=== PATIENT | female | born 1990 | race Caucasian/White ===

== ENCOUNTER 2016-12-26 20:23 | Emergency (ER) | payer BC, OTHER ==
[~2016-12-26] VITALS: Ht 175.3 cm; Wt 76.5 kg
[~2016-12-26 20:23] MED LIST: ACET-749 PO; LEVO50TA PO; MTR600X PO; PRENTAB26 PO
[2016-12-26 21:12] VITALS: TEMP 36.8; Ht 175.3 cm; Wt 76.5 kg
[2016-12-26] MEDS ORDERED: LEVO50TA6 PO (21:38)
[2016-12-26] MEDS ORDERED: BCPILLS PO (21:38)
[2016-12-26] MEDS ORDERED: ZLF/50 PO (21:38)
[2016-12-26] MEDS ORDERED: AMOXICILLIN 250 MG CAP PO STA (21:46)
[2016-12-26] MEDS ORDERED: TRAMADOL HCL 50 MG HOME PACK PO ONE (22:00)
[2016-12-26] MEDS ORDERED: AMOXICILLIN HOME PACK 250 MG/TAB PO ONE (22:00)
[2016-12-26] MEDS ORDERED: AMOX500C3 PO (22:11)
[2016-12-26] MEDS ORDERED: TRAM-10 PO (22:11)
--- NOTE | 2016-12-26 22:12 | EMERGENCY ROOM VISIT NOTE ---
ED Visit Note First contact with patient: 21:16 Chief Complaint: Dental Pain History of Present Illness: This patient is a 26-year-old female who presents to the Emergency Department this evening for evaluation of their dental pain. Patient believes the pain is arising from LEFT upper incisor tooth which they report developed a few days ago. They describe the pain as constant and they now report radiation to the ear. They have tried vpnf-rdr-zakfufh medication for the pain minimally symptoms. They report increased pain with eating and drinking. Patient rates her current discomfort as a 8/10. The patient does not have a dentist appointment set up at this time. Patient currently denies any associated fevers, chills, visual disturbances, neck pain/stiffness, or trismus. They report no drainage from the tooth. Patient is a current smoker. Medications: Reviewed and discussed with the patient. Allergies: No known allergies. PMH: No pertinent past medical history. SHx: Patient is a 26-year-old female who lives with family. ROS: All pertinent positive and negative review of systems are appropriately documented in the History of Present Illness. Physical Exam: VITAL SIGNS Vital signs and nursing notes were reviewed. GENERAL 26 -year-old female appearing her stated age who is in no acute distress. Communicates well with provider and answers questions appropriately. HEAD Normocephalic, Atraumatic. EYES PERRL with EOMI bilaterally. EARS No deformities of external structures noted on gross examination bilaterally. No pain elicited with palpation of the tragus bilaterally. External auditory canals without discharge or otorrhea. Tympanic membranes pearly briones without retraction or bulging. NOSE Midline and without cyanosis. No epistaxis or purulent drainage noted. Septum midline without deviation or septal hematoma noted. MOUTH/OROPHARYNX Without perioral cyanosis. Buccal mucosa pink and moist and without leukoplakia. Tongue midline with equal elevation of palate bilaterally. No tonsillar hypertrophy, erythema, or exudates noted. Good dentition noted. The LEFT upper incisor tooth is TTP. Surrounding gums erythematous and edematous without discharge. Exquisite tenderness to palpation of affected tooth. No trismus. No fluctuance to palpation or active drainage appreciated. NECK Neck with FROM. Supple to palpation. No lymphadenopathy noted. No nuchal rigidity. ED Course: Patient was seen and evaluated by myself. It was discussed with the patient at great length that the Emergency Department is not an appropriate place for continued treatment of dental pain issues. Patient acknowledges understanding. Patient was provided initial dose of Amoxicillin and Ultram while in the Emergency Department. Patient will be placed on a course of the same. Patient was educated on worrisome symptoms for return visit to the Emergency Department. Patient was discharged to home afebrile and in good condition. Impression: Odontalgia Discharge Instructions: You have been treated in the Emergency Department for Dental Pain. You have received pain medicine in the emergency department which impairs your ability to operate a vehicle. It is illegal for you to drive after receiving these medicines. You have been prescribed Ultram to be used for pain control. This is a narcotic medication. You cannot drive or consume alcohol while on this medicine. This medicine should only be used for pain that cannot be controlled with over-the- counter pain medicines. You were prescribed Amoxicillin to be taken as prescribed. This is an antibiotic. All antibiotics have the potential to cause diarrhea. Stop this medication and contact a medical provider if you were to develop any significant adverse side effects including: wheezing, shortness of breath, passing out, vomiting, or a diffuse rash. Always take antibiotics as directed and COMPLETE the ENTIRE course regardless of the improvement of your symptoms. For pain control, you can use the following shax-ixy-bsaqvep medicines (if >12 yo): - Regular strength (325mg/tab) Tylenol (acetaminophen) 2 tabs every 4-6 hours as needed. Do not exceed 12 tablets in a 24 hour period. Avoid taking more than 4 grams (4000 mg) of Tylenol per day. This includes any other sources of acetaminophen you may take on a regular basis. - Regular strength (200 mg/tab) Advil (ibuprofen) 1-2 tabs every 4-6 hours as needed. Do not exceed a dose of 3200 mg per day. Refrain from smoking cigarettes or using chewing tobacco until you have been evaluated by your dentist. Keeping beverages lukewarm and consuming soft foods can decrease your pain. Warm compresses over the affected area may offer some relief. You MUST seek evaluation of your dental pain by a dentist following your visit to the Emergency Department. The Emergency Department is not capable of treating dental issues long-term. You should call your dentist as soon as possible to make an appointment for evaluation of your dental pain. Return to the emergency department if you develop the following symptoms despite treatment course outlined above: fever, intractable pain, increased redness, swelling, or purulent discharge. Current/Historical Medications Scheduled Amoxicillin (Amoxil), 500 MG PO TID Control Pills ( Control Pills), 1 TAB PO DAILY Levothyroxine Sodium (Levothyroxine Sodium), 50 MCG PO DAILY Sertraline HCl (Sertraline HCl), 50 MG PO DAILY Scheduled PRN Tramadol (Ultram), 1-2 TAB PO Q4H PRN for Pain Allergies Coded Allergies: No Known Allergies (Unverified , 06/27/16) Vital Signs Date Time Temp Pulse Resp B/P Pulse Ox O2 Delivery O2 Flow Rate FiO2 12/26/16 22:21 70 18 121/86 98 12/26/16 21:12 36.8 88 20 132/81 98 Room Air Medications Administered Medications (Trade) Dose Ordered Sig/Carmen Route Start Time Stop Time Status Last Admin Dose Admin Amoxicillin (Amoxil 250MG Home Pack) 1 homepack UD ONCE PO 12/26/16 22:00 12/26/16 22:01 DC 12/26/16 22:00 1 HOMEPACK Amoxicillin (Amoxil Cap) 500 mg NOW STAT PO 12/26/16 21:46 12/26/16 21:48 DC 12/26/16 21:55 500 MG Tramadol HCl (Ultram Home Pack) 1 homepack UD ONCE PO 12/26/16 22:00 12/26/16 22:01 DC 12/26/16 22:00 1 HOMEPACK Departure Information Impression Primary Impression: Pain, dental Additional Impression: Odontalgia Dispostion Home / Self-Care Condition GOOD Prescriptions Tramadol (Ultram) 50 Mg Tab 1-2 TAB PO Q4H Y for Pain, #16 TAB For Initial Treatment Prov: Ramirez Mendosa PA-C 12/26/16 Amoxicillin (AMOXIL) 500 Mg Cap 500 MG PO TID for 10 Days, #30 CAP Prov: Ramirez Mendosa PA-C 12/26/16 Referrals Mikey Sanchez M.D. (PCP) Patient Instructions My [facility] Additional Instructions You have been treated in the Emergency Department for Dental Pain. You have received pain medicine in the emergency department which impairs your ability to operate a vehicle. It is illegal for you to drive after receiving these medicines. You have been prescribed Ultram to be used for pain control. This is a narcotic medication. You cannot drive or consume alcohol while on this medicine. This medicine should only be used for pain that cannot be controlled with over-the- counter pain medicines. You were prescribed Amoxicillin to be taken as prescribed. This is an antibiotic. All antibiotics have the potential to cause diarrhea. Stop this medication and contact a medical provider if you were to develop any significant adverse side effects including: wheezing, shortness of breath, passing out, vomiting, or a diffuse rash. Always take antibiotics as directed and COMPLETE the ENTIRE course regardless of the improvement of your symptoms. For pain control, you can use the following gtxh-wnw-wtnbufd medicines (if >12 yo): - Regular strength (325mg/tab) Tylenol (acetaminophen) 2 tabs every 4-6 hours as needed. Do not exceed 12 tablets in a 24 hour period. Avoid taking more than 4 grams (4000 mg) of Tylenol per day. This includes any other sources of acetaminophen you may take on a regular basis. - Regular strength (200 mg/tab) Advil (ibuprofen) 1-2 tabs every 4-6 hours as needed. Do not exceed a dose of 3200 mg per day. Refrain from smoking cigarettes or using chewing tobacco until you have been evaluated by your dentist. Keeping beverages lukewarm and consuming soft foods can decrease your pain. Warm compresses over the affected area may offer some relief. You MUST seek evaluation of your dental pain by a dentist following your visit to the Emergency Department. The Emergency Department is not capable of treating dental issues long-term. You should call your dentist as soon as possible to make an appointment for evaluation of your dental pain. Return to the emergency department if you develop the following symptoms despite treatment course outlined above: fever, intractable pain, increased redness, swelling, or purulent discharge. Problem Qualifiers
[2016-12-26 22:21] VITALS: BP 121/86; PULSE 70; O2SAT 98
== END 2016-12-26 22:22 | disposition home or self-care (01) ==
LOC: C.EDB 20:24 → C.EDD 22:22
DX: K08.89 Other specified disorders of teeth and supporting structures (principal)

== ENCOUNTER 2017-04-24 20:59 | Emergency (ER) | payer BC, OTHER ==
[~2017-04-24] VITALS: Ht 175.3 cm; Wt 77.6 kg
[~2017-04-24 20:59] MED LIST changes: -ACET-749 PO; +BCPILLS PO; -LEVO50TA PO; +LEVO50TA6 PO; -MTR600X PO; -PRENTAB26 PO; +TRAM-10 PO; +ZLF/50 PO
[2017-04-24 21:13] VITALS: BP 134/86; PULSE 96; TEMP 37; O2SAT 97; Ht 175.3 cm; Wt 77.6 kg
[2017-04-24] MEDS ORDERED: HYDR-5688 PO (21:51)
[2017-04-24] MEDS ORDERED: PENI500T2 PO (21:51)
[2017-04-24] MEDS ORDERED: NORCO 5/325MG HOME PACK PO ONE (22:00)
[2017-04-24] MEDS ORDERED: PENICILLIN HOME PACK 500MG (4 DOSES)BTL PO ONE (22:00)
--- NOTE | 2017-04-25 20:19 | EMERGENCY ROOM VISIT NOTE ---
ED Visit Note First contact with patient: 21:34 CHIEF COMPLAINT: I think I have an abscessed tooth. HISTORY OF PRESENT ILLNESS: Ms. Lira is a 27-year-old white female who ambulates into the ED accompanied by her mother complaining of a possible abscess tooth. She reports a approximately one month ago she broke tooth 12. She was seen by her dentist who reported that she had an abscess and would need to be on antibiotics and follow up with oral surgery. She finished her antibiotic but at the same time had a change in insurance and could not follow-up with the oral surgeon. Patient reports earlier today while chewing she broke another piece off the tooth and started experiencing pain. Approximately one hour before she arrived in the emergency department she was chewing again and broke another piece officer same tooth. Currently she is describing a deep achy and throbbing sensation over the left maxillary area in the area of tooth 12. She rates her discomfort 8/10. Her pain is radiating throughout the left side of the face including the maxillary sinus area. Her discomfort worsens with palpation of the tooth. She has not identified any alleviating factors related to the pain. She reports that she has been using hatv-jil-zyohybi medications had no relief of her discomfort. Associated with her pain she reports she's been having chills but has not been documented any bryson fevers. She also feels like the left side of her face is swollen. She denies headaches, dizziness, lightheadedness, hearing changes, difficulty speaking, difficulty swallowing, painful talking, drooling, cough, wheezing, shortness of breath, decreased appetite, nausea/vomiting. REVIEW OF SYSTEMS: As noted above in History of Present Illness. 8 body systems were reviewed with this patient and found to be negative unless noted above otherwise. PMH: Bronchitis, migraine headaches. CURRENT MEDICATION: Levothyroxine, control, sertraline. ALLERGIES TO MEDICATION: Patient denies. SOCIAL HISTORY: Patient is not employed; she feels safe in her home environment ; she admits to Tobacco use and denies alcohol use. PHYSICAL EXAM: Vital Signs: Date Time Temp Pulse Resp B/P (MAP) Pulse Ox O2 Delivery O2 Flow Rate FiO2 04/24/17 21:13 37.0 96 16 134/86 97 Room Air General: 27 year-old white female in mild distress due to pain, nontoxic appearing, afebrile and hemodynamically stable. Neurological: Awake, alert and oriented to person, place and time. Answering questions appropriately and following commands. Normal gait. Good hand eye coordination. No focal motor or sensory deficits. Skin: Warm, dry and pink. No soft tissue lesions, rashes, or trauma noted. HEENT: Atraumatic and normocephalic. I do not appreciate any facial erythema or swelling. Oral cavity is moist and pink. Airway is patent. Uvula is midline and no abscesses are seen. Speech is normal. No drooling. Patient has multiple decaying teeth. Tooth #12 has most of the posterior half of the tooth is missing. There is mild erythema in the local gingiva. I do not appreciate any palpable abscesses. No cervical or submandibular lymphadenopathy. ED COURSE: Patient is assessed as noted above. Patient is educated about his findings and instructed on her treatment plan; she verbalizes understanding and agreement with this plan. CLINIC IMPRESSION: Dental pain. Possible early abscess tooth. DISPOSITION: Patient discharged home in stable condition; prior to departure she was reassessed and subjectively reported she was feeling the same. PLAN: Comfort measures were discussed including the use of a mechanical soft diet, covering the affected tooth with dental wax and a sliding pain scale of ibuprofen, acetaminophen and [place]. She was given appropriate narcotic precautions and I did check her name and state database and no red flags are noted. Patient was encouraged to followup with personal dentist for definitive care and treatment. Patient was encouraged to return the ED for facial swelling or fevers.
== END 2017-04-24 22:17 | disposition home or self-care (01) ==
LOC: C.EDB 21:00 → C.EDD 22:17
DX: K08.89 Other specified disorders of teeth and supporting structures (principal); Z79.3 Long term (current) use of hormonal contraceptives; Z79.899 Other long term (current) drug therapy

== ENCOUNTER 2017-08-07 16:33 | Emergency (ER) | payer BC, OTHER ==
[~2017-08-07] VITALS: Ht 175.3 cm; Wt 77.0 kg
[~2017-08-07 16:33] MED LIST changes: +HYDR-5688 PO; -TRAM-10 PO
[2017-08-07 16:43] VITALS: TEMP 36.8; Ht 175.3 cm; Wt 77.0 kg
[2017-08-07] MEDS ORDERED: IBUP-1050 PO (17:26)
[2017-08-07 17:56] VITALS: BP 116/76; PULSE 82; O2SAT 99
--- NOTE | 2017-08-07 17:58 | DIAGNOSTIC IMAGING REPORT ---
R ELBOW MIN 3 VIEWS ROUTINE CLINICAL HISTORY: R radial nerve palsy COMPARISON: None. DISCUSSION: The fat pads are not displaced. No fractures or dislocations are visualized. No bony destructive lesions are evident. IMPRESSION: No bony abnormalities identified. Electronically signed by: Harsh Albert M.D. 08/07/2017 5:57 PM Dictated Date/Time: 08/07/2017 5:56 PM
--- NOTE | 2017-08-07 19:58 | EMERGENCY ROOM VISIT NOTE ---
History First contact with patient: 16:49 Chief Complaint: ARM PAIN Stated Complaint: NUMBNESS IN THE HAND AND ARM, CAN'T OPEN HAND History of Present Illness The patient is a 27 year old female who presents to the Emergency Room with complaints of inability to open her right hand since awakening this morning around 8 AM. The patient denies any known injury to the arm, hand or fingers. The patient reports that she has a history of remote and bilateral hand numbness for the past 7 years. She was told by her chiropractor that it is arthritis. The patient denies any other significant medical problems. She does smoke a pack of cigarettes over a 3 day period of time, and has done so for the past 5 years. She denies any history of thyroid disease, anemia or known vitamin B/D deficiency. She denies any pain, and in fact reports numbness of the hand and lateral forearm. The patient is [id number]. Review of Systems 10 system review was performed and was negative except for pertinent positives and negatives as indicated in history of present illness Past Medical/Surgical History Medical Problems: (1) Active labor at term (2) Family History Unremarkable Social History Smoking Status: Current Some Day Smoker Alcohol Use: none Marital Status: Housing Status: lives with significant other Occupation Status: employed Current/Historical Medications Scheduled Levothyroxine Sodium (Levothyroxine Sodium), 50 MCG PO DAILY Sertraline HCl (Sertraline HCl), 100 MG PO DAILY Scheduled PRN Ibuprofen (Advil), 200-600 MG PO Q4H PRN for Pain Physical Exam Vital Signs Date Time Temp Pulse Resp B/P (MAP) Pulse Ox O2 Delivery O2 Flow Rate FiO2 08/07/17 17:56 82 20 116/76 99 Room Air 08/07/17 16:43 36.8 101 20 126/85 99 Room Air Physical Exam CONSTITUTIONAL: Healthy and well nourished. Alert and oriented X 3 with positive affect. The patient does not appear in any acute distress. HEENT: Normocephalic, atraumatic. Pupils equal, round and reactive. NECK: Full active range of motion without discomfort. RESPIRATORY: Clear to auscultation bilaterally with no wheezing, crackles, rhonchi or stridor. CARDIOVASCULAR: Regular rate and rhythm with no murmurs, rubs or gallops. GASTROINTESTINAL: Bowel sounds present in all quadrants. MUSCULOSKELETAL: Examination of the right upper extremity does not show any obvious edema, erythema or pallor. Capillary refill is less than 2 seconds. Radial and ulnar pulses are intact. The patient has no worsening pain with range of motion of the right shoulder, elbow, wrist or fingers. No focal tenderness to palpation through the cubital tunnel or around the radial head. Negative anatomic snuffbox tenderness. The patient has no extensor effort of the index through fifth fingers. She does have a dross puller strength of 2 out of 5. No interosseous muscle atrophy. INTEGUMENTARY: No rash or other significant dermatologic conditions noted. NEUROLOGIC: Right hand and fingers are grossly sensory intact. Medical Decision & Procedures ER Provider Diagnostic Interpretation: My interpretation of right elbow x-rays does not show any acute fractures, dislocation or suspicious bony lesions. Radiologist report is as follows: R ELBOW MIN 3 VIEWS ROUTINE CLINICAL HISTORY: R radial nerve palsy COMPARISON: None. DISCUSSION: The fat pads are not displaced. No fractures or dislocations are visualized. No bony destructive lesions are evident. IMPRESSION: No bony abnormalities identified. ED Course Patient history and physical exam were performed. Nurse's notes were reviewed. Vital signs were reviewed and were normal. X-rays of the right elbow were normal. The patient was advised that her clinical exam is consistent with a radial palsy. She was encouraged to intermittently apply ice to the lateral elbow region. She was provided contact information for [facility], where she has been treated before in the past for other issues. The patient was happy with plan of care, voiced understanding of all discharge instructions , and denied any pain at the time of discharge. Medical Decision Medication Reconcilliation Current Medication List: was personally reviewed by me Blood Pressure Screening Patient's blood pressure: Normal blood pressure Impression Primary Impression: Acute radial nerve palsy of right upper extremity Departure Information Referrals Mikey Sanchez M.D. (PCP) Patient Instructions My [facility]
== END 2017-08-07 19:14 | disposition home or self-care (01) ==
LOC: C.EDB 16:35 → C.EDC 19:14
DX: G56.31 Lesion of radial nerve, right upper limb (principal); F17.200 Nicotine dependence, unspecified, uncomplicated; Z79.899 Other long term (current) drug therapy

== ENCOUNTER → 2017-08-09 | Outpatient (CLI) | payer BC, OTHER ==
[~2017-08-09] MED LIST changes: -BCPILLS PO; -HYDR-5688 PO; +IBUP-1050 PO
--- NOTE | 2017-08-09 18:15 | DIAGNOSTIC IMAGING REPORT ---
CERVICAL SPINE 3 VIEWS HISTORY: NECK PAIN COMPARISON: Cervical spine 02/27/2015. FINDINGS: Flexion, extension, AP, and odontoid views of the cervical spine were submitted for review. The cervical spine is visualized from C1 through the superior endplate of T1. There is no fracture. No subluxation. Disc spaces are preserved. Prevertebral soft tissues and the atlantodens interval are intact. Alignment remains intact throughout flexion and extension. 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 This results in a mild downward tilt to the left of the upper cervical spine. IMPRESSION: 1. No change compared to the prior study. 2. 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 3. The alignment remains intact throughout flexion and extension. Electronically signed by: Momo Martines M.D. 08/09/2017 6:13 PM Dictated Date/Time: 08/09/2017 6:11 PM
== END | disposition home or self-care (01) ==
LOC: C.RDSM 15:33
PROVIDERS: ATTEND Orthopaedic Surgery
DX: M54.2 Cervicalgia (principal); Z98.1 Arthrodesis status

== ENCOUNTER 2018-05-25 15:41 | Emergency (ER) | payer BC ==
[~2018-05-25] VITALS: Ht 175.3 cm; Wt 86.6 kg
[2018-05-25 15:53] VITALS: TEMP 36.7; Ht 175.3 cm; Wt 86.6 kg
--- NOTE | 2018-05-25 17:24 | EMERGENCY ROOM VISIT NOTE ---
History Report prepared by Gregory: Magan Baker Under the Supervision of: Dr. Harish Stevens M.D. First contact with patient: 17:01 Chief Complaint: ABDOMINAL PAIN Stated Complaint: POSSIBLE APPENDICITIS, SENT FROM -CARE Nursing Triage Summary: Patient with c/o pain to the right of umbilicus that shoots to back. Pain has been on going for one - two weeks. N/V/D. Seen at acute care and sent to ER. History of Present Illness The patient is a 28 year old female with a past medical history of hypertension who presents to the ED with a cc of RLQ pain that she describes as a constant stabbing beginning about a week and a half ago. Her LNMP was about two weeks ago and was normal. Positive for vomiting, diarrhea. smoking, hypothyroidism, and chills Negative for hematochezia, recent travel, or abx use. Source of History: patient Onset: A week and a half ago Position: abdomen (RLQ) Quality: stabbing Timing: constant Associated Symptoms: + chills, + vomiting, + diarrhea, No melena, No hematochezia Review of Systems See HPI for pertinent positives and negatives. A total of ten systems were reviewed and were otherwise negative. Past Medical & Surgical Medical Problems: (1) Active labor at term (2) HTN (hypertension) (3) Hypothyroidism (4) Family History Cancer Diabetes mellitus FHx: gallbladder disease Heart disease Kidney disease Lung disease Seizures Social History Smoking Status: Current Every Day Smoker Alcohol Use: none Marital Status: Housing Status: lives with significant other Occupation Status: employed Current/Historical Medications Scheduled Control Pills ( Control Pills), 1 TAB PO DAILY Cephalexin (Keflex), 1 CAP PO BID Levothyroxine Sodium (Levothyroxine Sodium), 50 MCG PO DAILY Scheduled PRN Ondansetron Hcl (Zofran), 4 MG PO Q8H PRN for Nausea Allergies Coded Allergies: No Known Allergies (Unverified , 05/25/18) Physical Exam Vital Signs Date Time Temp Pulse Resp B/P (MAP) Pulse Ox O2 Delivery O2 Flow Rate FiO2 05/25/18 20:20 75 18 124/83 100 05/25/18 19:14 62 18 131/81 100 Room Air 05/25/18 18:57 78 05/25/18 15:53 36.7 96 18 153/89 99 Room Air Physical Exam GENERAL: Awake, alert, well-appearing, NAD HENT: Normocephalic, atraumatic. EYES: Normal conjunctiva. Sclera non-icteric. PERRL. No anisocoria. NECK: Supple. No nuchal rigidity. FROM. RESPIRATORY: CTAB, no rhonchi, wheezing, crackles CARDIAC: RRR, no MRG ABDOMEN: Soft, NTND, BS+, RLQ pain, epigastric pain, periumbilical pain, positive obturator, positive psoas MSK: No chest wall TTP, no LE edema NEURO: GCS 15, CN 2-12 intact, moves all 4s on command SKIN: No rash or jaundice noted. Medical Decision & Procedures ER Provider Diagnostic Interpretation: Radiology results as stated below per my review and radiologist interpretation: CT SCAN OF THE ABDOMEN AND PELVIS WITH IV CONTRAST CLINICAL HISTORY: Periumbilical and right lower quadrant abdominal pain. COMPARISON STUDY: No priors. TECHNIQUE: Following the IV administration of 94 cc of Optiray 320, CT scan of the abdomen and pelvis is performed from the lung bases to the proximal femora. Images are reviewed in the axial, sagittal, and coronal planes. IV contrast was administered without complication. A dose lowering technique was utilized adhering to the principles of ALARA. CT DOSE: 293.67 mGy.cm FINDINGS: Lung bases: The heart is normal in size and without pericardial effusion. There are trace pleural effusions with dependent atelectasis. Liver: The contrast-enhanced liver is enlarged, measuring 19.6 cm in length. The liver is normal in contour and demonstrates heterogeneous attenuation. There is no intrahepatic biliary ductal dilatation. The hepatic veins and portal veins are patent. Gallbladder: Unremarkable. Spleen: The spleen is markedly enlarged, measuring 17.2 cm in length. Pancreas: Unremarkable. Adrenal glands: Unremarkable. Kidneys: The contrast enhanced kidneys are normal in size and without hydronephrosis. The kidneys enhance symmetrically. Abdominal vasculature: The abdominal aorta is normal in course and caliber. Bowel: The colon is largely decompressed. No bowel obstruction is seen. The appendix is well-visualized and normal. Peritoneum: There is no intraperitoneal free air or abdominal ascites. Lymphadenopathy: None. Pelvic viscera: The bladder, uterus, and adnexa are normal as visualized. A small ovarian follicles are observed. Skeletal structures: No lytic or blastic lesions are seen. Mild sclerotic change is noted in the sacroiliac joints. IMPRESSION: 1. The appendix is well-visualized and normal. 2. Hepatosplenomegaly. 3. There are trace pleural effusions. Electronically signed by: Titus Merino M.D. 05/25/2018 7:24 PM Dictated Date/Time: 05/25/2018 7:16 PM Laboratory Results 05/25/18 18:21 Red Blood Count 5.58, Mean Corpuscular Volume 82.1, Mean Corpuscular Hemoglobin 29.2, Mean Corpuscular Hemoglobin Concent 35.6, Mean Platelet Volume 11.6, Neutrophils (%) (Auto) 66.3, Lymphocytes (%) (Auto) 28.8, Monocytes (%) (Auto) 4.2, Eosinophils (%) (Auto) 0.3, Basophils (%) (Auto) 0.3, Neutrophils # (Auto) 4.87, Lymphocytes # (Auto) 2.12, Monocytes # (Auto) 0.31, Eosinophils # (Auto) 0.02, Basophils # (Auto) 0.02 05/25/18 18:21 Test 05/25/18 18:21 White Blood Count 7.35 K/uL (4.8-10.8) Red Blood Count 5.58 M/uL (4.2-5.4) Hemoglobin 16.3 g/dL (12.0-16.0) Hematocrit 45.8 % (37-47) Mean Corpuscular Volume 82.1 fL (80-100) Mean Corpuscular Hemoglobin 29.2 pg (25-34) Mean Corpuscular Hemoglobin Concent 35.6 g/dl (32-36) Platelet Count 161 K/uL (130-400) Mean Platelet Volume 11.6 fL (7.4-10.4) Neutrophils (%) (Auto) 66.3 % Lymphocytes (%) (Auto) 28.8 % Monocytes (%) (Auto) 4.2 % Eosinophils (%) (Auto) 0.3 % Basophils (%) (Auto) 0.3 % Neutrophils # (Auto) 4.87 K/uL (1.4-6.5) Lymphocytes # (Auto) 2.12 K/uL (1.2-3.4) Monocytes # (Auto) 0.31 K/uL (0.11-0.59) Eosinophils # (Auto) 0.02 K/uL (0-0.5) Basophils # (Auto) 0.02 K/uL (0-0.2) RDW Standard Deviation 38.0 fL (36.4-46.3) RDW Coefficient of Variation 12.7 % (11.5-14.5) Immature Granulocyte % (Auto) 0.1 % Immature Granulocyte # (Auto) 0.01 K/uL (0.00-0.02) Urine Color YELLOW Urine Appearance CLOUDY (CLEAR) Urine pH 7.5 (4.5-7.5) Urine Specific Rosanky 1.004 (1.000-1.030) Urine Protein NEG (NEG) Urine Glucose (UA) NEG (NEG) Urine Ketones NEG (NEG) Urine Occult Blood NEG (NEG) Urine Nitrite NEG (NEG) Urine Bilirubin NEG (NEG) Urine Urobilinogen NEG (NEG) Urine Leukocyte Esterase LARGE (NEG) Urine WBC (Auto) /hpf (0-5) Urine RBC (Auto) /hpf (0-4) Urine Hyaline Casts (Auto) /lpf (0-5) Urine Epithelial Cells (Auto) /lpf (0-5) Urine Bacteria (Auto) (NEG) Urine RBC 0-4 /hpf (0-4) Urine WBC >30 /hpf (0-5) Urine Epithelial Cells >30 /lpf (0-5) Urine Bacteria 1+ (NEG) Urine Test NEG (NEG) Anion Gap 8.0 mmol/L (3-11) Est Creatinine Clear Calc Drug Dose 137.1 ml/min Estimated GFR () 131.7 Estimated GFR (Non- 113.7 BUN/Creatinine Ratio 6.2 (10-20) Calcium Level 9.5 mg/dl (8.5-10.1) Total Bilirubin 0.5 mg/dl (0.2-1) Direct Bilirubin 0.1 mg/dl (0-0.2) Aspartate Amino Transf (AST/SGOT) 17 U/L (15-37) Alanine Aminotransferase (ALT/SGPT) 19 U/L (12-78) Alkaline Phosphatase 67 U/L (45-117) Total Protein 8.9 gm/dl (6.4-8.2) Albumin 4.5 gm/dl (3.4-5.0) Lipase 122 U/L (73-393) Laboratory results reviewed by me Medications Administered Medications (Trade) Dose Ordered Sig/Carmen Route Start Time Stop Time Status Last Admin Dose Admin Sodium Chloride 1,000 ml @ 999 mls/hr Q1H1M STAT IV 05/25/18 17:26 05/25/18 18:26 DC 05/25/18 18:34 999 MLS/HR Ondansetron HCl (Zofran Inj) 4 mg NOW STAT IV 05/25/18 17:26 05/25/18 17:27 DC 05/25/18 18:35 4 MG Ketorolac Tromethamine (Toradol Inj) 30 mg NOW STAT IV 05/25/18 17:26 05/25/18 17:27 DC 05/25/18 18:34 30 MG Ceftriaxone Sodium (Rocephin Inj) 1 gm NOW STAT IV 05/25/18 19:11 05/25/18 19:12 DC 05/25/18 19:17 1 GM ED Course 1720: The patient was evaluated in room A2. A complete history and physical exam was performed. 1931: I reevaluated the patient's condition 2008: I reevaluated the patient. Discussed results and discharge instructions: She verbalized understanding and agreement. The patient is ready for discharge. Medical Decision Nursing notes reviewed. Ancillary studies and prior records reviewed. Differential diagnosis: Etiologies such as appendicitis, diverticulitis, PUD, biliary pathology, UTI, pancreatitis, obstruction, mesenteric ischemia, aortic pathology, infections, inflammatory bowel disease, renal colic, as well as others were entertained. Patient was seen and evaluated the bedside. Patient has no past medical problems. The patient was complaining of persistent periumbilical and right lower quadrant discomfort. Patient denies any vaginal bleeding or discharge. Patient denies any trauma. The patient was seen at acute care and was referred here for rule out of appendicitis. The patient does have right lower quadrant discomfort with associated positive obturators and so as. Patient did have blood work, urinalysis, CT abdomen pelvis, was given medications for symptom control. His blood work is fairly unremarked. Patient did have a urinalysis with questionable infection. The patient was treated with Rocephin. The patient CT did show hepatosplenomegaly but no other acute changes. The patient does not have any history of thrombocytosis. The patient has normal LFTs. This may be more viral the mediated. I did warn the patient not to do anything with high intensity contact as there could be concern for possible splenic rupture or laceration. I did discuss that the patient could have mono or another viral mediated illness but this would likely just be supportive in nature. Given that her blood work is very reassuring otherwise with blood cell count H&H, platelet count, and LFTs I believe outpatient therapy is appropriate at this time. Patient was told return if she any worsening symptoms. Patient tolerated p.o. without issue. Patient was counseled on smoking cessation and was advised to follow a clear liquid or soft diet. Patient was given strict follow-up, discharge, and return precautions. All questions were answered. Patient was deemed suitable for outpatient follow-up at this time. Patient agreed with the plan of care and was safely discharged home. Medication Reconcilliation Current Medication List: was personally reviewed by me Blood Pressure Screening Patient's blood pressure: Normal blood pressure Impression Primary Impression: UTI (urinary tract infection) Additional Impressions: Hepatosplenomegaly Encounter for smoking cessation counseling Scribe Attestation The scribe's documentation has been prepared under my direction and personally reviewed by me in its entirety. I confirm that the note above accurately reflects all work, treatment, procedures, and medical decision making performed by me. Departure Information Dispostion Home / Self-Care Prescriptions Ondansetron Hcl (ZOFRAN) 4 Mg Tab 4 MG PO Q8H Y for Nausea, #12 TAB Prov: Harish Stevens M.D. 05/25/18 Cephalexin (KEFLEX) 500 Mg Cap 1 CAP PO BID for 7 Days, #14 CAP Prov: Harish Stevens M.D. 05/25/18 Referrals Mikey Sanchez M.D. (PCP) Forms HOME CARE DOCUMENTATION FORM, IMPORTANT VISIT INFORMATION Patient Instructions ED UTI Cystitis Female, My [facility] Additional Instructions Please return to the emergency department if you have worsening or recurrent symptoms not amenable to at-home treatment. Please call for a follow-up appointment with her primary care physician. Please take your medications as prescribed. If you have other concerns and/or complaints please feel free to also call your primary care physician's office or return the ED for further evaluation, management, and treatment. You may take 600 mg Ibuprofen every 6 hours as needed for pain/fever with food unless told by your physician not to take NSAIDs. You may take tylenol 650 mg every 6 hours as needed for pain/fever unless told by your physician to not take it or have liver problems. You may take motrin and tylenol separately or at the same time. Take your medications as prescribed. If taking an antibiotic consider taking a probiotic and/or eating yogurt, but at the least, please take with food as it can cause upset stomach. If culture results are not available at discharge, if they are positive for concern of infection, you will be informed of the results as soon as they are available. As a reminder you did have a mildly enlarged spleen and liver. Please do not overexert yourself or play or perform any physical activities that incorporate any sort of hard physical contact. You have been examined and treated today on an emergency basis only. This is not a substitute for, or an effort to provide, complete comprehensive medical care. It is impossible to recognize and treat all injuries or illnesses in a single emergency department visit. It is therefore important that you follow up closely with [facility], your PCP, and/or your specialist(s). Call as soon as possible for an appointment. Thank you for your time and consideration. I look forward to speaking with you again soon. Please don't hesitate to call us if you have any questions. Problem Qualifiers Primary Impression: UTI (urinary tract infection) Urinary tract infection type: acute cystitis Hematuria presence: with hematuria Qualified Codes: N30.01 - Acute cystitis with hematuria
[2018-05-25] MEDS ORDERED: SODIUM CHLORIDE 0.9% 1000ML 1,000 ML IV STA (17:26)
[2018-05-25] MEDS ORDERED: KETOROLAC TROMETHAMINE 30 MG/ML VIAL IV STA (17:26)
[2018-05-25] MEDS ORDERED: ONDANSETRON INJ 2 MG/ML 2 ML VIAL IV STA (17:26)
[2018-05-25] MEDS ORDERED: BCPILLS PO (17:38)
[2018-05-25 18:37] LABS: BASO % 0.3 %; BASO ABS # 0.02 K/uL (0-0.2); EOS % 0.3 %; EOS ABS # 0.02 K/uL (0-0.5); HEMATOCRIT 45.8 % (37-47); HEMOGLOBIN 16.3 g/dL (12.0-16.0); IG# 0.01 K/uL (0.00-0.02); LYMPH % 28.8 %; LYMPH ABS # 2.12 K/uL (1.2-3.4); MEAN CELL VOLUME 82.1 fL (80-100); MEAN CORPUSCULAR HEMOGLOBIN 29.2 pg (25-34); MEAN CORPUSCULAR HGB CONC 35.6 g/dl (32-36); MEAN PLATELET VOLUME 11.6 fL (7.4-10.4); MONO % 4.2 %; MONO ABS # 0.31 K/uL (0.11-0.59); NEUT % 66.3 %; NEUT ABS # 4.87 K/uL (1.4-6.5); PLATELET COUNT 161 K/uL (130-400); RED CELL DISTRIBUTION WIDTH CV 12.7 % (11.5-14.5); WHITE BLOOD COUNT 7.35 K/uL (4.8-10.8)
[2018-05-25 18:56] LABS: CREATININE 0.73 mg/dl (0.60-1.20)
[2018-05-25 18:57] LABS: ALBUMIN 4.5 gm/dl (3.4-5.0); CALCIUM 9.5 mg/dl (8.5-10.1); POTASSIUM 3.7 mmol/L (3.5-5.1); TOTAL PROTEIN 8.9 gm/dl (6.4-8.2)
[2018-05-25] MEDS ORDERED: OPTIRAY 320 IV PRN (19:00)
[2018-05-25] MEDS ORDERED: CEFTRIAXONE SOD INJ 1 GM ADDVIAL IV STA (19:11)
--- NOTE | 2018-05-25 19:26 | DIAGNOSTIC IMAGING REPORT ---
CT SCAN OF THE ABDOMEN AND PELVIS WITH IV CONTRAST CLINICAL HISTORY: Periumbilical and right lower quadrant abdominal pain. COMPARISON STUDY: No priors. TECHNIQUE: Following the IV administration of 94 cc of Optiray 320, CT scan of the abdomen and pelvis is performed from the lung bases to the proximal femora. Images are reviewed in the axial, sagittal, and coronal planes. IV contrast was administered without complication. A dose lowering technique was utilized adhering to the principles of ALARA. CT DOSE: 293.67 mGy.cm FINDINGS: Lung bases: The heart is normal in size and without pericardial effusion. There are trace pleural effusions with dependent atelectasis. Liver: The contrast-enhanced liver is enlarged, measuring 19.6 cm in length. The liver is normal in contour and demonstrates heterogeneous attenuation. There is no intrahepatic biliary ductal dilatation. The hepatic veins and portal veins are patent. Gallbladder: Unremarkable. Spleen: The spleen is markedly enlarged, measuring 17.2 cm in length. Pancreas: Unremarkable. Adrenal glands: Unremarkable. Kidneys: The contrast enhanced kidneys are normal in size and without hydronephrosis. The kidneys enhance symmetrically. Abdominal vasculature: The abdominal aorta is normal in course and caliber. Bowel: The colon is largely decompressed. No bowel obstruction is seen. The appendix is well-visualized and normal. Peritoneum: There is no intraperitoneal free air or abdominal ascites. Lymphadenopathy: None. Pelvic viscera: The bladder, uterus, and adnexa are normal as visualized. A small ovarian follicles are observed. Skeletal structures: No lytic or blastic lesions are seen. Mild sclerotic change is noted in the sacroiliac joints. IMPRESSION: 1. The appendix is well-visualized and normal. 2. Hepatosplenomegaly. 3. There are trace pleural effusions. Electronically signed by: Titus Merino M.D. 05/25/2018 7:24 PM Dictated Date/Time: 05/25/2018 7:16 PM
[2018-05-25] MEDS ORDERED: ONDA4TAB46 PO (19:41)
[2018-05-25] MEDS ORDERED: CEPH-571 PO (19:41)
[2018-05-25 20:20] VITALS: BP 124/83; PULSE 75; O2SAT 100
== END 2018-05-25 20:14 | disposition home or self-care (01) ==
LOC: C.EDB 15:44 → C.EDA 20:14
DX: N60.01 Solitary cyst of right breast (principal); R16.2 Hepatomegaly with splenomegaly, not elsewhere classified; I10 Essential (primary) hypertension; E03.9 Hypothyroidism, unspecified; F17.200 Nicotine dependence, unspecified, uncomplicated

== ENCOUNTER 2021-02-18 15:22 | Inpatient (IN) ==
[2021-02-18] MEDS ORDERED: AMPICILLIN/SULBACTAM SOD 3,000 MG in 0.9 % SODIUM CHLORIDE 100 ML IV STA (15:45)
[2021-02-18] MEDS ORDERED: SODIUM CHLORIDE 0.9% 1000ML 1,000 ML IV ONE ×2 (15:45→17:12)
[2021-02-18] MEDS ORDERED: KETOROLAC TROMETHAMINE 15 MG/ML VIAL IV STA (15:45)
[2021-02-18 16:02] LABS: Basophils # (auto) 0.01 K/uL (0-0.2); Basophils % (auto) 0.1 %; Eosinophils # (auto) 0.06 K/uL (0-0.5); Eosinophils % (auto) 0.5 %; Hematocrit (blood only) 42.2 % (37-47); Hemoglobin 14.9 g/dL (12.0-16.0); Immature Granulocytes # (auto) 0.03 K/uL (0.00-0.02); Immature Granulocytes % (auto) 0.3 %; Lymphocytes # (auto) 1.54 K/uL (1.2-3.4); Lymphocytes % (auto) 13.8 %; Mean Corpuscular Hemoglobin 29.3 pg (25-34); Mean Corpuscular Hgb Conc 35.3 g/dL (32-36); Mean Corpuscular Volume 83.1 fL (80-100); Mean Platelet Volume 10.7 fL (7.4-10.4); Monocytes # (auto) 1.03 K/uL (0.11-0.59); Monocytes % (auto) 9.2 %; Neutrophils # (auto) 8.48 K/uL (1.4-6.5); Neutrophils % (auto) 76.1 %; Platelet Count 187 K/uL (130-400); RDW Coefficient of Variation 12.8 % (11.5-14.5); RDW Standard Deviation 38.8 fL (36.4-46.3); Red Blood Count 5.08 M/uL (4.2-5.4); White Blood Count 11.15 K/uL (4.8-10.8)
[2021-02-18 16:21] LABS: BUN Creatinine Ratio 11.8 (10-20); Calcium 9.6 mg/dl (8.5-10.1); Est GFR (African American) 148.7; Est GFR (Non-African American) 128.3; Potassium 3.8 mmol/L (3.5-5.1)
[2021-02-18 16:23] LABS: Pregnancy Test, Serum Negative (Negative)
[2021-02-18 16:24] LABS: Globulin 4.2 gm/dl (2.5-4.0); Total Protein 8.2 gm/dl (6.4-8.2)
--- NOTE | 2021-02-18 16:30 | Emergency Department Note ---
History of Present Illness General Chief complaint: Facial Injury/Pain Stated complaint: LEFT SIDE OF FACE IS SWOLLEN Time Seen by Provider: 02/18/21 15:32 Source: patient Mode of arrival: ambulatory Limitations: no limitations History of Present Illness Maximum Pain Intensity: 7 This patient is a 31-year-old female who presents to the emergency department for evaluation of left-sided facial swelling. Patient reports she has had a long history of dental issues and needs to have all of her teeth removed. She has been unable to do this because no one locally accepts her insurance and she would have to travel to [place], which is difficult because she has several kids at home. She states she has been having pain in the left side of the face for the past 2 to 3 weeks. Last night, she developed some swelling in this area which has worsened today. She states it is painful to eat. She has been taking ibuprofen without much relief. She states the pain is in the upper teeth. She has not recently been on antibiotics. She rates her discomfort a 7/10. She denies fevers or difficulty breathing. Home Medications Medication Instructions Recorded Confirmed Type citalopram [Celexa] 10 mg PO DAILY 02/18/21 02/18/21 History Allergies Allergy/AdvReac Type Severity Reaction Status Date / Time No Known Allergies Allergy Unverified 02/18/21 18:30 Past Med/Surg History Medical History HTN (hypertension) Hypothyroidism Social History Smoking Status: Current every day smoker Feels Safe at Home: Yes Review of Systems A total of 10 systems reviewed and were otherwise negative Physical Exam Vital Signs Vital Signs - 24 hr 02/18/21 15:29 02/18/21 17:22 02/18/21 17:31 Temperature 36.8 C Temperature Source Temporal Artery Scan Pulse Rate 142 H 112 H Pulse Rate [Apical] 88 Pulse Rate from SpO2 Sensor 112 H Respiratory Rate 18 18 Respiratory Effort / Characteristics Non-Labored Respiratory Depth Normal Blood Pressure 139/79 129/87 Blood Pressure [Left Arm] 129/87 Blood Pressure Mean 99 101 Blood Pressure Mean [Left Arm] 101 Pulse Oximetry 100 97 100 Oxygen Delivery Method Room Air Room Air Sepsis Recent Fever Within 48 Hours No Sepsis New/Unexplained Change in Mental Status No Sepsis Action Taken by Nursing No Action Required 02/18/21 17:33 02/18/21 17:40 02/18/21 17:50 Temperature Temperature Source Pulse Rate 114 H 108 H 109 H Pulse Rate [Apical] Pulse Rate from SpO2 Sensor 114 H 107 H Respiratory Rate 21 15 18 Respiratory Effort / Characteristics Respiratory Depth Blood Pressure Blood Pressure [Left Arm] Blood Pressure Mean Blood Pressure Mean [Left Arm] Pulse Oximetry 100 99 Oxygen Delivery Method Sepsis Recent Fever Within 48 Hours Sepsis New/Unexplained Change in Mental Status Sepsis Action Taken by Nursing 02/18/21 18:00 02/18/21 18:10 02/18/21 18:20 Temperature Temperature Source Pulse Rate 104 H 98 H 99 H Pulse Rate [Apical] Pulse Rate from SpO2 Sensor Respiratory Rate 17 18 14 Respiratory Effort / Characteristics Respiratory Depth Blood Pressure Blood Pressure [Left Arm] Blood Pressure Mean Blood Pressure Mean [Left Arm] Pulse Oximetry Oxygen Delivery Method Sepsis Recent Fever Within 48 Hours Sepsis New/Unexplained Change in Mental Status Sepsis Action Taken by Nursing 02/18/21 18:30 02/18/21 18:40 02/18/21 18:50 Temperature Temperature Source Pulse Rate 95 H 98 H 97 H Pulse Rate [Apical] Pulse Rate from SpO2 Sensor Respiratory Rate 17 13 20 Respiratory Effort / Characteristics Respiratory Depth Blood Pressure 125/70 Blood Pressure [Left Arm] Blood Pressure Mean 88 Blood Pressure Mean [Left Arm] Pulse Oximetry Oxygen Delivery Method Sepsis Recent Fever Within 48 Hours Sepsis New/Unexplained Change in Mental Status Sepsis Action Taken by Nursing 02/18/21 19:00 02/18/21 19:10 02/18/21 19:20 Temperature Temperature Source Pulse Rate 91 H 105 H 94 H Pulse Rate [Apical] Pulse Rate from SpO2 Sensor Respiratory Rate 13 19 17 Respiratory Effort / Characteristics Respiratory Depth Blood Pressure Blood Pressure [Left Arm] Blood Pressure Mean Blood Pressure Mean [Left Arm] Pulse Oximetry Oxygen Delivery Method Sepsis Recent Fever Within 48 Hours Sepsis New/Unexplained Change in Mental Status Sepsis Action Taken by Nursing VITALS: Vitals are noted on the nurse's note and reviewed by myself. GENERAL: This is a 31-year-old female, uncomfortable appearing, anxious, well-developed well-nourished. FACE: There is significant facial swelling to the left maxillary and mandibular regions, extending just inferior to the left eye. EARS: External auditory canals clear, tympanic membranes pearly briones without erythema or effusion bilaterally. EYES: Pupils equal round and reactive to light and accommodation. NOSE: Patent, turbinates without inflammation or discharge. MOUTH: Multiple dental caries noted, poor dentition. Left upper gums appear edematous. NECK: Supple without nuchal rigidity. Bilateral cervical lymphadenopathy noted. HEART: Regular rate and rhythm without murmurs gallops or rubs. LUNGS: Clear to auscultation bilaterally without wheezes, rales or rhonchi. No dullness to percussion. No retractions or accessory muscle use. NEURO: Patient was alert and oriented to person place and time. Course Consultations Consultation #1: Dr. Solorzano - maxillofacial surgery Administered Medications Ketorolac Tromethamine (Ketorolac Tromethamine 15 Mg/Ml Vial) 15 mg IV Q6H PRN PRN Reason: Pain Stop: 02/23/21 19:26 Last Admin: 02/18/21 20:46 Dose: 15 mg Documented by: [id number] Discontinued Medications Ampicillin Sodium/Sulbactam Sodium 3,000 mg/ Sodium Chloride 108 mls @ 200 mls/hr IV NOW STA; Protocol Stop: 02/18/21 16:17 Last Infusion: 02/18/21 17:06 Dose: 0 mls/hr Documented by: [id number] Admin: 02/18/21 15:54 Dose: 200 mls/hr Documented by: [id number] Sodium Chloride (Nss 1000ml) 1,000 mls @ 999 mls/hr IV .Q1H1M ONE Stop: 02/18/21 16:45 Last Infusion: 02/18/21 17:06 Dose: 0 mls/hr Documented by: [id number] Admin: 02/18/21 15:54 Dose: 999 mls/hr Documented by: [id number] Sodium Chloride (Nss 1000ml) 1,000 mls @ 999 mls/hr IV .Q1H1M ONE Stop: 02/18/21 18:12 Last Infusion: 02/18/21 20:11 Dose: 0 mls/hr Documented by: [id number] Admin: 02/18/21 17:48 Dose: 999 mls/hr Documented by: [id number] Ioversol (Optiray 300 100ml) 89 ml IV ONCE ONE Stop: 02/18/21 16:32 Last Admin: 02/18/21 16:32 Dose: 89 ml Documented by: [id number] Ketorolac Tromethamine (Ketorolac Tromethamine 15 Mg/Ml Vial) 15 mg IV NOW STA Stop: 02/18/21 15:46 Last Admin: 02/18/21 15:54 Dose: 15 mg Documented by: [id number] Medical Decision Making Differential Diagnosis Differential diagnosis includes dental caries, periapical abscess, facial cellulitis, Dony's angina, pharyngitis, referred pain, among others. Home Medications Current Medication List: was personally reviewed by me Laboratory Data Attestation: I reviewed the patient's lab results. Result diagrams: 02/18/21 15:55 02/18/21 15:55 Lab Results 02/18/21 02/18/21 02/18/21 Range/Units 15:55 15:55 15:55 WBC 11.15 H (4.8-10.8) K/uL RBC 5.08 (4.2-5.4) M/uL Hgb 14.9 (12.0-16.0) g/dL Hct 42.2 (37-47) % MCV 83.1 (80-100) fL MCH 29.3 (25-34) pg MCHC 35.3 (32-36) g/dL RDW Std Deviation 38.8 (36.4-46.3) fL RDW Coeff of Marek 12.8 (11.5-14.5) % Plt Count 187 (130-400) K/uL MPV 10.7 H (7.4-10.4) fL Immature Gran % (Auto) 0.3 % Neut % (Auto) 76.1 % Lymph % (Auto) 13.8 % [place] % (Auto) 9.2 % Eos % (Auto) 0.5 % Baso % (Auto) 0.1 % Neut # (Auto) 8.48 H (1.4-6.5) K/uL Lymph # (Auto) 1.54 (1.2-3.4) K/uL [place] # (Auto) 1.03 H (0.11-0.59) K/uL Eos # (Auto) 0.06 (0-0.5) K/uL Baso # (Auto) 0.01 (0-0.2) K/uL Immature Gran # (Auto) 0.03 H (0.00-0.02) K/uL Sodium 135 L (136-145) mmol/L Potassium 3.8 (3.5-5.1) mmol/L Chloride 102 (98-107) mmol/L Carbon Dioxide 28 (21-32) mmol/L Anion Gap 6.0 (3-11) BUN 6 L (7-18) mg/dl Creatinine 0.53 L (0.6-1.2) mg/dl Est Cr Clr Drug Dosing 160.0 ml/min Est GFR ( Amer) 148.7 Est GFR (Non-Af Amer) 128.3 BUN/Creatinine Ratio 11.8 (10-20) Glucose 103 H (70-99) mg/dl Calcium 9.6 (8.5-10.1) mg/dl Total Bilirubin 1.0 (0.2-1) mg/dl AST 20 (15-37) U/L ALT 28 (12-78) U/L Alkaline Phosphatase 81 (45-117) U/L Total Protein 8.2 (6.4-8.2) gm/dl Albumin 4.0 (3.4-5.0) gm/dl Globulin 4.2 H (2.5-4.0) gm/dl Albumin/Globulin Ratio 1.0 (0.9-2) HCG, Qual Negative (Negative) COVID-19 Eval Order SARS-CoV-2 (PCR) (Negative) Influenza Type A (PCR) (Neg) Influenza Type B (PCR) (Neg) RSV (RT-PCR) (Neg) 02/18/21 02/18/21 Range/Units 18:12 18:12 WBC (4.8-10.8) K/uL RBC (4.2-5.4) M/uL Hgb (12.0-16.0) g/dL Hct (37-47) % MCV (80-100) fL MCH (25-34) pg MCHC (32-36) g/dL RDW Std Deviation (36.4-46.3) fL RDW Coeff of Marek (11.5-14.5) % Plt Count (130-400) K/uL MPV (7.4-10.4) fL Immature Gran % (Auto) % Neut % (Auto) % Lymph % (Auto) % [place] % (Auto) % Eos % (Auto) % Baso % (Auto) % Neut # (Auto) (1.4-6.5) K/uL Lymph # (Auto) (1.2-3.4) K/uL [place] # (Auto) (0.11-0.59) K/uL Eos # (Auto) (0-0.5) K/uL Baso # (Auto) (0-0.2) K/uL Immature Gran # (Auto) (0.00-0.02) K/uL Sodium (136-145) mmol/L Potassium (3.5-5.1) mmol/L Chloride (98-107) mmol/L Carbon Dioxide (21-32) mmol/L Anion Gap (3-11) BUN (7-18) mg/dl Creatinine (0.6-1.2) mg/dl Est Cr Clr Drug Dosing ml/min Est GFR ( Amer) Est GFR (Non-Af Amer) BUN/Creatinine Ratio (10-20) Glucose (70-99) mg/dl Calcium (8.5-10.1) mg/dl Total Bilirubin (0.2-1) mg/dl AST (15-37) U/L ALT (12-78) U/L Alkaline Phosphatase (45-117) U/L Total Protein (6.4-8.2) gm/dl Albumin (3.4-5.0) gm/dl Globulin (2.5-4.0) gm/dl Albumin/Globulin Ratio (0.9-2) HCG, Qual (Negative) COVID-19 Eval Order [facility]Rsv at [facility] SARS-CoV-2 (PCR) NEGATIVE (Negative) Influenza Type A (PCR) Negative (Neg) Influenza Type B (PCR) Negative (Neg) RSV (RT-PCR) Negative (Neg) Imaging Data Attestation: I personally reviewed and interpreted this imaging study as follows: Radiologist's Impression: Face CT 02/18/21 15:45 CT facial bones w con HISTORY: 31 years-old Female left dental pain/facial swelling acute soft tissue swelling of the face. COMPARISON: None TECHNIQUE: Multiple axial CT images of the facial bones were obtained following the intravenous administration of 89 mL Optiray 300 FINDINGS: No acute facial bone fracture. Mastoid air cells and middle ear cavities are clear. Mild mucoperiosteal thickening of the left greater than right maxillary sinuses and bilateral ethmoid air cells. The imaged cervical spine is unremarkable. There are numerous large dental caries involving the maxillary and mandibular teeth with associated periapical cysts. Moderate subcutaneous edema of the left cheek and mandibular tissues. Moderate sized periapical cyst involves the left maxillary lateral incisor. There are 2 subadjacent peripherally enhancing fluid collections noted along the inner and outer margins of the adjacent mandible measuring 6 and 5 mm respectively on image 44 of series 2. Enlarged level 1 and 2 lymph nodes measuring up to 11 mm. Mild enlargement of the adenoid and palatine tonsils. Patent airway. No prevertebral edema. Unr emarkable orbits and imaged intracranial structures. IMPRESSION: 1. Extensive dental caries with associated periapical cysts. Moderate sized periapical cyst involves the left maxillary lateral incisor. There are two adjacent subcentimeter peripherally enhancing fluid collections as above suggestive of abscesses. 2. Extensive cellulitis of the left face. 3. Reactive submandibular and cervical chain lymph nodes. ACT 112: Negative or not required by law. The above report was generated using voice recognition software. It may contain grammatical, syntax or spelling errors. Electronically signed by: Lars Jc M.D. 02/18/2021 4:54 PM MDM Narrative The patient is a 31-year-old female who presents today complaining of left-sided facial swelling. Labs revealed a leukocytosis of 11,000. Labs were otherwise unremarkable. CT of the facial bones was performed and does show significant d ental disease with periapical abscesses and an extensive facial cellulitis. I did feel that given the extent of her cellulitis and the rapid progression of this, it would benefit patient to receive IV antibiotics in the hospital. I spoke with the on-call maxillofacial surgeon, who recommended that the patient be kept n.p.o. overnight and he will see her in the morning. Patient received IV Unasyn. The case was discussed with the [facility] service, who agreed to evaluate the patient for further care. Impression & Plan Cellulitis of face, Periapical abscess Discharge Plan Visit Data Chief Complaint: Facial Injury/Pain Stated Complaint: LEFT SIDE OF FACE IS SWOLLEN ED Provider: [facility] ED Midlevel Provider: Deisy Mustafa Discharge Problem: Cellulitis of face, Periapical abscess Patient Disposition: Admitted As Inpatient Discharge Instructions Interventions: ED Discharge Assessment Last Done: 02/18/21 19:53
[2021-02-18] MEDS ORDERED: OPTIRAY 300 100mL IV ONE (16:31)
--- NOTE | 2021-02-18 16:55 | CT Scan Report ---
CT facial bones w con HISTORY: 31 years-old Female left dental pain/facial swelling acute soft tissue swelling of the face . COMPARISON: None TECHNIQUE: Multiple axial CT images of the facial bones were obtained following the intravenous admin istration of 89 mL Optiray 300 FINDINGS: No acute facial bone fracture. Mastoid air cells and middle ear cavities are clear. Mild mucoperioste al thickening of the left greater than right maxillary sinuses and bilateral ethmoid air cells. The i kelechi cervical spine is unremarkable. There are numerous large dental caries involving the maxillary and mandibular teeth with associated periapical cysts. Moderate subcutaneous edema of the left cheek and mandibular tissues. Moderate sized periapical cyst involves the left maxillary lateral incisor. T here are 2 subadjacent peripherally enhancing fluid collections noted along the inner and outer scottie ns of the adjacent mandible measuring 6 and 5 mm respectively on image 44 of series 2. Enlarged level 1 and 2 lymph nodes measuring up to 11 mm. Mild enlargement of the adenoid and palatine tonsils. Pat ent airway. No prevertebral edema. Unremarkable orbits and imaged intracranial structures. IMPRESSION: 1. Extensive dental caries with associated periapical cysts. Moderate sized periapical cyst involves the left maxillary lateral incisor. There are two adjacent subcentimeter peripherally enhancing fluid collections as above suggestive of abscesses. 2. Extensive cellulitis of the left face. 3. Reactive submandibular and cervical chain lymph nodes. ACT 112: Negative or not required by law. The above report was generated using voice recognition software. It may contain grammatical, syntax o r spelling errors. Electronically signed by: Lars Jc M.D. 02/18/2021 4:54 PM
[2021-02-18 19:18] LABS: Influenza A virus by PCR Negative (Neg); Influenza B virus by PCR Negative (Neg); RSV by PCR Negative (Neg); SARS CoV2 RNA(COVID-19) InHosp NEGATIVE (Negative)
[2021-02-18] MEDS ORDERED: ACETAMINOPHEN 325 MG TAB PO PRN (19:27)
--- NOTE | 2021-02-18 19:33 | History & Physical Report ---
Date of Service February 18, 2021 Assessment & Plan (1) Cellulitis of face: Cellulitis of L Face - Likely borne of poor dentition and periapical abscesses - No airway or oropharyngeal involvement at present - Work-up as follows: - Mild leukocytosis with left shift - Afebrile, normotensive, with tachycardia on arrival - CT Face - demonstrating extensive dental caries with periapical cysts; there were also noted to be periapical abscesses near the L maxillary lateral incisor - Physical exam with induration over left cheek, grossly poor dentition, mild conjunctival edema without restriction or pain with ocular movement - Unasyn 3g IV q6h - Tylenol p.r.n. for pain --> if unresponsive, can consider opioid (unresponsive to Toradol in ER) - Chlorhexadine mouth wash for pain - Consult OFMS -- appreciate insight on need for possible intervention, Dr. Solorzano was contacted by ER PA and is aware of case - Clear liquid diet for now - NPO after midnight in case of possible procedure - BMP, CBC qAM - Blood cultures ordered (patient did get ABX in the ED prior to BCxs being drawn) Poor Dentition - Patient said this has been ongoing for many years and is wishing to get dentures, but can't get connected with a dentist - Unclear etiology -- possible lifestyle component; multiple cavities, patient endorses brushing in past - Denies substance use - Saying she's had difficulty getting connected to dentistry because of insurance - Good candidate for CVIM - Case management consult placed Anxiety, Symptoms of Depression - Known history of anxiety, follows with her PCP - Continue with Celexa - Does endorse depressed mood given ongoing divorce and social stressors - Denies SI/HI - Amenable to discussing this with PCP upon discharge Hypothyroidism - On Synthroid in past; no longer requires per patient via PCP visits - Defer TSH in setting of inflammation, illness - Repeat TSH/fT4 as outpatient Hyponatremia- Na+ mildly low at 134, likely secondary to mild dehydration as evidenced by poor po intake and tachycardia on arrival -improved tachycardia with IVFs follow BMP in AM Code: FULL CODE Diet: Clear liquid --> NPO after midnight PPX: SCDs Dispo: MS/Tele (2) Periapical abscess: (3) HTN (hypertension): (4) Hypothyroidism: (5) Hypothyroid: (6) Hyponatremia: History of Present Illness Primary Care Provider: NO PCP This is a 31-year-old female with a notable past medical history of anxiety and hypothyroidism who presents today for evaluation of left dental pain and left- sided facial swelling. Patient notes that she has struggled with dentition problems her whole entire life. The last time she saw a dentist was over a year ago. She said over the last 2 days, her teeth on her left side have begun feeling more painful; this also included the roof of her mouth. She noted that last night, she began to notice some firmness and redness in the left side of her face, and upon waking this morning, it was much worse. She denies trouble breathing. She does say that is painful to swallow, however eating and drinking has not resulted in gagging or choking on food. She denies any recent fevers, chills, night sweats, loss of appetite, nausea, vomiting, diarrhea. In the ED, patient was found to be hemodynamically stable with a mild leukocytosis with left shift. There was no airway involvement. CT of the face demonstrated extensive cellulitis of the left face, dental caries, as well as periapical cysts and abscesses near the left maxillary incisor. OMFS was notified. Patient was started on Unasyn. Socially, patient reports living at home with her parents and 4 children. She reports that things have been quite rough for her lately and she has had difficulty taking care of herself. She is in the midst of a divorce. She does say that her mood has been quite down lately, although she denies SI or HI. She endorses using half a pack per day of cigarettes for approximately 8 years, denies alcohol use, denies recreational substance use. Allergies Allergy/AdvReac Type Severity Reaction Status Date / Time No Known Allergies Allergy Unverified 02/18/21 18:30 Home Medications Medication Instructions Recorded Confirmed Type citalopram [Celexa] 10 mg PO DAILY 02/18/21 02/18/21 History Past Med/Surg History Medical History HTN (hypertension) Hypothyroidism Family History (Updated 02/19/21 @ 00:08 by Sven Sterling MD) Other Poor dentition Social History Smoking Status: Current every day smoker Do You Dip or Chew Tobacco: No; Hx Alcohol Use: No Hx Substance Use: No Preferred Language: Danish Beliefs That Will Affect Care: None Current Living Situation: Parent and Family Other Information That Helps Us Care for You: No Feels Safe at Home: Yes Safety Concerns: Feels Safe At This Time Assistive Devices: None Review of Systems Review of Systems: As per HPI Physical Exam Physical Exam: General: 31-year-old female who is alert, oriented, and appears in mild distress secondary to her facial swelling. She is nontoxic-appearing overall. HEENT: General visual inspection of the face does reveal extensive erythema and edema involving the left face; specifically, from the level of the eye to the bottom of the cheek. The left eyelids demonstrate a mild amount of edema. The left cheek does demonstrate induration that is mildly tender to palpation. Oral exam does reveal poor dentition; there are no obvious or focal areas of edema or mass. Gentle palpation of the left inner cheek reveals firmness. The soft and hard palate are nontender to palpation. Examination of the posterior oropharynx reveals a midline uvula and moderately sized tonsils that do not appear inflamed. The airways patent. There is no pharyngeal erythema. The eyes are's white, anicteric and without injection. PERRL. Extraocular movements display full range of motion bilaterally. There is anterior cervical lymphadenopathy on the left. Cardiac: Normal rate and regular rhythm; S1 and S2 present with no murmurs, rubs, or gallops. Pulmonary: Good respiratory effort with symmetric expansion of the chest. No use of accessory muscles. Lungs were clear to auscultation bilaterally with no crackles or wheezes. Abdominal: Normoactive bowel sounds. Abdomen was soft, nondistended, and non- tender to palpation. No hepatomegaly or splenomegaly. Extremities: Upper and lower extremities are warm and well perfused. Radial and dorsalis pedis pulses were 2+ b/l. Capillary refill assessed in UE was < 3 sec. Results & Data Results & Data ([facility]) Vital Signs (Past 12 Hours) Vital Signs Temp Pulse Pulse Resp BP BP Pulse Ox 02/18/21 18:00 104 H 17 02/18/21 17:50 109 H 18 02/18/21 17:40 108 H 15 99 02/18/21 17:33 114 H 21 100 02/18/21 17:31 112 H 129/87 100 02/18/21 17:22 88 18 129/87 97 02/18/21 15:29 36.8 C 142 H 18 139/79 100 Laboratory Results 02/18/21 02/18/21 02/18/21 Range/Units 18:12 18:12 15:55 WBC (4.8-10.8) K/uL RBC (4.2-5.4) M/uL Hgb (12.0-16.0) g/dL Hct (37-47) % MCV (80-100) fL MCH (25-34) pg MCHC (32-36) g/dL RDW Std Deviation (36.4-46.3) fL RDW Coeff of Marek (11.5-14.5) % Plt Count (130-400) K/uL MPV (7.4-10.4) fL Immature Gran % (Auto) % Neut % (Auto) % Lymph % (Auto) % Maries % (Auto) % Eos % (Auto) % Baso % (Auto) % Neut # (Auto) (1.4-6.5) K/uL Lymph # (Auto) (1.2-3.4) K/uL Maries # (Auto) (0.11-0.59) K/uL Eos # (Auto) (0-0.5) K/uL Baso # (Auto) (0-0.2) K/uL Immature Gran # (Auto) (0.00-0.02) K/uL Sodium (136-145) mmol/L Potassium (3.5-5.1) mmol/L Chloride (98-107) mmol/L Carbon Dioxide (21-32) mmol/L Anion Gap (3-11) BUN (7-18) mg/dl Creatinine (0.6-1.2) mg/dl Est Cr Clr Drug Dosing ml/min Est GFR ( Amer) Est GFR (Non-Af Amer) BUN/Creatinine Ratio (10-20) Glucose (70-99) mg/dl Calcium (8.5-10.1) mg/dl Total Bilirubin (0.2-1) mg/dl AST (15-37) U/L ALT (12-78) U/L Alkaline Phosphatase (45-117) U/L Total Protein (6.4-8.2) gm/dl Albumin (3.4-5.0) gm/dl Globulin (2.5-4.0) gm/dl Albumin/Globulin Ratio (0.9-2) HCG, Qual Negative (Negative) COVID-19 Eval Order CovFluRsv at [facility] SARS-CoV-2 (PCR) NEGATIVE (Negative) Influenza Type A (PCR) Negative (Neg) Influenza Type B (PCR) Negative (Neg) RSV (RT-PCR) Negative (Neg) 02/18/21 02/18/21 Range/Units 15:55 15:55 WBC 11.15 H (4.8-10.8) K/uL RBC 5.08 (4.2-5.4) M/uL Hgb 14.9 (12.0-16.0) g/dL Hct 42.2 (37-47) % MCV 83.1 (80-100) fL MCH 29.3 (25-34) pg MCHC 35.3 (32-36) g/dL RDW Std Deviation 38.8 (36.4-46.3) fL RDW Coeff of Marek 12.8 (11.5-14.5) % Plt Count 187 (130-400) K/uL MPV 10.7 H (7.4-10.4) fL Immature Gran % (Auto) 0.3 % Neut % (Auto) 76.1 % Lymph % (Auto) 13.8 % Maries % (Auto) 9.2 % Eos % (Auto) 0.5 % Baso % (Auto) 0.1 % Neut # (Auto) 8.48 H (1.4-6.5) K/uL Lymph # (Auto) 1.54 (1.2-3.4) K/uL Maries # (Auto) 1.03 H (0.11-0.59) K/uL Eos # (Auto) 0.06 (0-0.5) K/uL Baso # (Auto) 0.01 (0-0.2) K/uL Immature Gran # (Auto) 0.03 H (0.00-0.02) K/uL Sodium 135 L (136-145) mmol/L Potassium 3.8 (3.5-5.1) mmol/L Chloride 102 (98-107) mmol/L Carbon Dioxide 28 (21-32) mmol/L Anion Gap 6.0 (3-11) BUN 6 L (7-18) mg/dl Creatinine 0.53 L (0.6-1.2) mg/dl Est Cr Clr Drug Dosing 160.0 ml/min Est GFR ( Amer) 148.7 Est GFR (Non-Af Amer) 128.3 BUN/Creatinine Ratio 11.8 (10-20) Glucose 103 H (70-99) mg/dl Calcium 9.6 (8.5-10.1) mg/dl Total Bilirubin 1.0 (0.2-1) mg/dl AST 20 (15-37) U/L ALT 28 (12-78) U/L Alkaline Phosphatase 81 (45-117) U/L Total Protein 8.2 (6.4-8.2) gm/dl Albumin 4.0 (3.4-5.0) gm/dl Globulin 4.2 H (2.5-4.0) gm/dl Albumin/Globulin Ratio 1.0 (0.9-2) HCG, Qual (Negative) COVID-19 Eval Order SARS-CoV-2 (PCR) (Negative) Influenza Type A (PCR) (Neg) Influenza Type B (PCR) (Neg) RSV (RT-PCR) (Neg) Diagnostic Findings Face CT 02/18/21 15:45 CT facial bones w con HISTORY: 31 years-old Female left dental pain/facial swelling acute soft tissue swelling of the face. COMPARISON: None TECHNIQUE: Multiple axial CT images of the facial bones were obtained following the intravenous administration of 89 mL Optiray 300 FINDINGS: No acute facial bone fracture. Mastoid air cells and middle ear cavities are clear. Mild mucoperiosteal thickening of the left greater than right maxillary sinuses and bilateral ethmoid air cells. The imaged cervical spine is unremarkable. There are numerous large dental caries involving the maxillary and mandibular teeth with associated periapical cysts. Moderate subcutaneous edema of the left cheek and mandibular tissues. Moderate sized periapical cyst involves the left maxillary lateral incisor. There are 2 subadjacent peripherally enhancing fluid collections noted along the inner and outer margins of the adjacent mandible measuring 6 and 5 mm respectively on image 44 of series 2. Enlarged level 1 and 2 lymph nodes measuring up to 11 mm. Mild enlargement of the adenoid and palatine tonsils. Patent airway. No prevertebral edema. Unremarkable orbits and imaged intracranial structures. IMPRESSION: 1. Extensive dental caries with associated periapical cysts. Moderate sized periapical cyst involves the left maxillary lateral incisor. There are two adjacent subcentimeter peripherally enhancing fluid collections as above suggestive of abscesses. 2. Extensive cellulitis of the left face. 3. Reactive submandibular and cervical chain lymph nodes. ACT 112: Negative or not required by law. The above report was generated using voice recognition software. It may contain grammatical, syntax or spelling errors. Electronically signed by: Lars Jc M.D. 02/18/2021 4:54 PM Supervising Physician Co-Signing Physician Notes I personally examined the patient and verified all corey points of history and exam, discussed case, and agree with decision making with Dr. Sterling with the following additions/exceptions: Pt presents with left sided facial pain and swelling after having left sided tooth pain x 2-3 weeks. She has not had fevers or chills, no trouble breathing but some pain with swallowing. Swelling came on fairly rapidly today. No pain with movement of eyes, no headache. Had some sinus tach on admissino which improved with IVFs Was given IV Unasyn in ER. Has poor access to medical and dental care. History and ROS reviewed notes h/o HTN but is not treated for this and BPs here have been normal Vitals reviewed NAD< AAOx3 Anicteric sclerae, +left periorbital edema, left side of face with significant edema especially in cheek region, +L>R cervical PAYTON palpable, mild erythema of left side of face Multiple teeth missing or fractures, no purulent drainage or erythema in mouth No pain with EOM testing RRR no mgr CTAB no wcr Abd +BS soft NT ND Ext no edema skin no rashes otherwise Psych-depressed mood, denies SI/HI Labs and rads reviewed 31 yo female here with left sided dental infection and facial cellulitis continue IV Unasyn, toradol and hydrocodone prn pain, start chlorhexadine mouthwash NPO after midnight consult OMFS for surgery-pt prefers to remove all her residual teeth if possible advised f/u with therapist and/or PCP for depressed mood and ongoing counseling for social stressors after discharge, consider adding wellbutrin or changing to different SSRI. Not currently SI/HI Resident Activity Tracking Resident Involvement: Resident Care Provided Care Provided: Adult Hospital Medicine
[2021-02-18] MEDS ORDERED: CHLORHEXIDINE GLUCONATE 0.12% 480 ML MT PRN (20:09)
[2021-02-18] MEDS ORDERED: ONDANSETRON INJ 2 MG/ML 2 ML VIAL IV PRN (20:09)
[2021-02-18] MEDS ORDERED: POLYETHYLENE (MIRALAX) 17 GM PACK PO PRN (20:09)
[2021-02-18] MEDS: KETOROLAC TROMETHAMINE 15 MG/ML VIAL IV PRN (20:46)
[2021-02-18] MEDS: AMPICILLIN/SULBACTAM SOD 3,000 MG in 0.9 % SODIUM CHLORIDE 100 ML IV SCH (22:22)
--- NOTE | 2021-02-18 23:49 | Billing Data ---
Date of Service February 18, 2021 Coding Level of Care Code 41689 OBS Care - Level 3
[2021-02-19] MEDS: AMPICILLIN/SULBACTAM SOD 3,000 MG in 0.9 % SODIUM CHLORIDE 100 ML IV SCH ×4 (05:04→22:03)
[2021-02-19] MEDS: KETOROLAC TROMETHAMINE 15 MG/ML VIAL IV PRN ×2 (05:59→21:00)
[2021-02-19 06:07] LABS: Basophils # (auto) 0.01 K/uL (0-0.2); Basophils % (auto) 0.1 %; Eosinophils # (auto) 0.07 K/uL (0-0.5); Eosinophils % (auto) 0.8 %; Hematocrit (blood only) 36.9 % (37-47); Hemoglobin 12.8 g/dL (12.0-16.0); Immature Granulocytes # (auto) 0.01 K/uL (0.00-0.02); Immature Granulocytes % (auto) 0.1 %; Lymphocytes # (auto) 1.62 K/uL (1.2-3.4); Lymphocytes % (auto) 17.5 %; Mean Corpuscular Hemoglobin 29.3 pg (25-34); Mean Corpuscular Hgb Conc 34.7 g/dL (32-36); Mean Corpuscular Volume 84.4 fL (80-100); Mean Platelet Volume 10.6 fL (7.4-10.4); Monocytes # (auto) 0.88 K/uL (0.11-0.59); Monocytes % (auto) 9.5 %; Neutrophils # (auto) 6.69 K/uL (1.4-6.5); Platelet Count 169 K/uL (130-400); RDW Coefficient of Variation 12.8 % (11.5-14.5); RDW Standard Deviation 39.3 fL (36.4-46.3); Red Blood Count 4.37 M/uL (4.2-5.4); White Blood Count 9.28 K/uL (4.8-10.8)
[2021-02-19 06:16] LABS: INR 1.1 (0.9-1.1); Prothrombin Time 11.2 Seconds (9.0-12.0)
[2021-02-19 06:33] LABS: BUN Creatinine Ratio 22.1 (10-20); Blood Urea Nitrogen 8 mg/dl (7-18); Calcium 8.3 mg/dl (8.5-10.1); Carbon Dioxide 23 mmol/L (21-32); Chloride 105 mmol/L (98-107); Creatinine Clr Calc Pharmacy 227.6 ml/min; Est GFR (African American) > 150.0; Est GFR (Non-African American) 143.2; Glucose 62 mg/dl (70-99); Magnesium 1.7 mg/dl (1.8-2.4); Phosphorus 3.1 mg/dl (2.5-4.9); Potassium 3.8 mmol/L (3.5-5.1); Sodium 136 mmol/L (136-145)
[2021-02-19] MEDS ORDERED: CARBOHYDRATES FOR HYPOGLYCEMIA PO PRN (08:45)
[2021-02-19] MEDS ORDERED: GLUCOSE 10 TABS/TUBE PO PRN (08:45)
[2021-02-19] MEDS ORDERED: GLUCOSE 40% GEL 15 GM TUBE PO PRN (08:45)
[2021-02-19] MEDS ORDERED: DEXTROSE 50% 50 ML SYRINGE IV PRN (08:45)
[2021-02-19] MEDS ORDERED: GLUCAGON FOR INJ 1 MG VIAL SQ PRN (08:45)
[2021-02-19] MEDS ORDERED: MAGNESIUM SULFATE / D5W 1 GM/100 ML BAG IV SCH (09:00)
[2021-02-19] MEDS: D5W AND NSS 1,000 ML IV SCH (09:37)
[2021-02-19] MEDS: CITALOPRAM 20 MG TAB PO SCH (11:04)
--- NOTE | 2021-02-19 13:23 | Anesthesiology Consultation ---
Date of Service February 19, 2021 Assessment & Plan (1) Encounter for pre-operative examination: Chart Review Chart Review: tour manager initiated History Surgery Operation Date: 02/19/21 09:35 Proposed Procedures p Facial Incision and Drainage, Extraction Multiple Teeth - Gagan Solorzano DMD Height/Weight Height: 5 ft 9 in Weight: 66 kg Allergies Allergy/AdvReac Type Severity Reaction Status Date / Time No Known Allergies Allergy Unverified 02/18/21 18:30 Medications Home Medications Medication Instructions Recorded Confirmed Last Taken citalopram [Celexa] 10 mg PO DAILY 02/18/21 02/18/21 Unknown Active Medications Generic Name Dose Route Start Last Admin Trade Name Freq PRN Reason Stop Dose Admin Citalopram Hydrobromide 10 mg 02/19/21 09:00 02/19/21 11:04 Citalopram 20 Mg Tab PO 03/21/21 08:59 10 mg DAILY KAVYA Administration Ampicillin Sodium/Sulbactam 108 mls @ 200 mls/hr 02/18/21 22:00 02/19/21 11: 46 Sodium 3,000 mg/ Sodium IV 02/25/21 21:59 Infused Chloride Q6H KAVYA Infusion Protocol Dextrose/Sodium Chloride 1,000 mls @ 80 mls/hr 02/19/21 09:15 02/19/21 09:37 D5w And Nss IV 02/20/21 10:14 80 mls/hr .[id number] KAVYA Administration Ketorolac Tromethamine 15 mg 02/18/21 19:27 02/19/21 05:59 Ketorolac Tromethamine 15 Mg/Ml Vial IV 02/23/21 19:26 15 mg Q6H PRN Administration Pain Past Medical History Medical History HTN (hypertension) Hypothyroidism Past Family History Family History Other Poor dentition Social History Smoking Status: Current every day smoker tobacco type: cigarettes Do You Dip or Chew Tobacco: No Hx Alcohol Use: No Hx Substance Use: No substance use type: does not use Physical Exam Vital Signs Last Vital Signs Temp 98.4 F 02/19/21 11:07 Pulse 77 02/19/21 11:07 Resp 13 02/19/21 11:07 BP 126/86 02/19/21 11:07 Pulse Ox 97 02/19/21 11:07 Testing Laboratory Results 02/19/21 05:51 02/19/21 05:51 PT 11.2 Seconds (9.0-12.0) 02/19/21 05:51 INR 1.1 (0.9-1.1) 02/19/21 05:51 02/19/21 09:44 POC Glucose 77
[2021-02-19] MEDS ORDERED: ONDANSETRON INJ 2 MG/ML 2 ML VIAL IV PRN (14:15)
[2021-02-19] MEDS ORDERED: ATROPINE SULFATE 0.1 MG/ML 10ML SYR IV PRN (14:15)
[2021-02-19] MEDS ORDERED: ePHEDrine sulfate 50 MG/ML AMP IV PRN (14:15)
--- NOTE | 2021-02-19 14:31 | Oral/Maxillofacial Consult ---
Date of Consultation February 19, 2021 Oral Maxillofacial Surgery consult---- acute facial swelling left side Present Complaint: I have pain/swelling/drainage from my infected teeth. Symptoms have been ongoing for a while they would come and go. Now acute left facial swelling, eye and naso labial fold, upper and palate left side From the time I saw her this AM until 3 pm she now has developed infection and left submandibular swelling. There is now drainage for the left lower teeth which are grossly decayed Oral Exam: All teeth are grossly infected and decayed beyond repair the tissue is tender and swollen with deep pocket formation. All Teeth are in very poor shape Imaging: CT scan using 3-D The CT was reviewed, there were no abnormal findings other then the gross infection and poor teeth The TMJ are well positioned and no evidence of bony pathology. The sinus show congestion , supporting bone resorption due to gross infection Evaluated the nerve/sinus relationship to the roots of the teeth. The following teeth are decayed/fractured--# all teeth, root fragments teeth are so grossly fractures that difficult to determine exact number I will do this after surgery Soft tissue: floor of the mouth left side is now tender with early signs of infection \ The tongue, hard/soft palate, posterior pharyngeal area all with in normal limits, no pathology or abnormal findings noted. Gross left facial infection upper area side of nose, infraorbital area, lower eye lid and left submandibular gland area Oral Care: Overall oral care is non existence Occlusion: Class I with no vertical dimension due to grossly fractured teeth TMJ exam: No pop, clicking, pain, good ROM, No history of TMJ injury or dysfunction Periodontal exam: grossly infected gingival tissue with evidence of acute periodontal pathology Head/Neck exam: Neck is supple, FROM, No Able to extend and flex neck due to facial swelling early swelling left neck swelling No other masses, no abnormalities, no airway issues, no evidence of sleep apnea. All infection is upper lip left side and left naso-labial area Treatment Plan: Set up with general anesthesia in hospital due to complexity of the procedure I reviewed the treatment plan and consent with the patient Understanding was expressed. Time was given for questions regarding the surgery, risks and post op care. Discussed alternative to treatment--procedure as planned--no options All teeth are grossly infected and removal is indicated and medically necessary. The following teeth are decayed and fractured and removal is indicated GARCIA: Risks discussed: Pain,swelling,infection, dry socket, delayed healing, nerve injury to face,lips,tongue,chin area which could be permanent (rare). TMJ, jaw stiffness, change in bite (rare), ear pain (referred). Sinus problems like fistula or infection. Need to leave a small root fragment in place to avoid injury to nerve or sinus. Relationship of teeth to nerve/sinus and risk of jaw fracture. Home care reviewed: rinsing with peridex follow up care with Dr Solorzano. diet=[id number] dental. Discussed activity level, driving/work while on Rx pain Meds. Surgery to be set up History of Present Illness Attending Physician: Kendall Obrien MD Allergies Allergy/AdvReac Type Severity Reaction Status Date / Time No Known Allergies Allergy Unverified 02/18/21 18:30 Home Medications Medication Instructions Recorded Confirmed Type citalopram [Celexa] 10 mg PO DAILY 02/18/21 02/18/21 History Patient History Medical History HTN (hypertension) Hypothyroidism Family History Other Poor dentition Social History Smoking Status: Current every day smoker Do You Dip or Chew Tobacco: No; Hx Alcohol Use: No Hx Substance Use: No Preferred Language: Botswanan Communication Ability: Effective Beliefs That Will Affect Care: None Current Living Situation: Parent and Family Other Information That Helps Us Care for You: No Feels Safe at Home: Yes Safety Concerns: Feels Safe At This Time Assistive Devices: None Results & Data ([facility]) Vital Signs (Past 12 Hours) Vital Signs Temp Pulse Pulse Pulse Resp BP Pulse Ox 02/19/21 11:07 36.9 C 77 13 126/86 97 02/19/21 10:37 110 H 02/19/21 07:40 37.1 C 94 H 12 122/66 94 02/19/21 04:00 37.9 C H 91 H 20 108/71 96 PG Care Time/CCT Total # of Minutes Spent Total Time Spent with Patient: Total time spent is greater than 50% in coordination of care (as documented) at patient's floor/unit and/or counseling patient: Coding Level of Care Code 03867 Inpt Consult Level 3
[2021-02-19] MEDS ORDERED: fentaNYL citrate 100 MCG/2 ML VIAL ONE (14:39)
[2021-02-19] MEDS ORDERED: PROPOFOL IV EMULSION 10 MG/ML 20 ML VIAL IV ONE (14:39)
[2021-02-19] MEDS ORDERED: MIDAZOLAM HCL 1 MG/ML 2ML VIAL ONE (14:39)
[2021-02-19] MEDS ORDERED: SUCCINYLCHOLINE CHLORIDE 20 MG/ML 10 ML VIAL IV ONE (14:39)
[2021-02-19] MEDS ORDERED: ONDANSETRON INJ 2 MG/ML 2 ML VIAL ONE ×2 (14:39→16:52)
[2021-02-19] MEDS ORDERED: LIDOCAINE HCL 2% 2 ML VIAL/AMP(20MG/ML) INFIL ONE (14:39)
[2021-02-19 14:58] LABS: Pregnancy Test, Urine Negative (Negative)
[2021-02-19] MEDS ORDERED: OXYMETAZOLINE 0.05% 30 ML BTL ONE (15:12)
--- NOTE | 2021-02-19 15:13 | History & Physical Bridge Note ---
Date of Service February 19, 2021 History & Physical Bridge Note I have examined the patient, reviewed the History & Physical and in the interval since the performance of the History & Physical I have noted the following changes of clinical significance: no changes noted
--- NOTE | 2021-02-19 15:30 | Hospitalist Progress Note ---
Date of Service February 19, 2021 Assessment & Plan (1) Cellulitis of face: Left Facial Cellulitis Multiple decayed/fractured teeth Periapical abscess/abscesses -Face CT: Extensive dental caries with associated periapical cysts. Moderate sized periapical cyst involves the left maxillary lateral incisor. There are two adjacent subcentimeter peripherally enhancing fluid collections as above suggestive of abscesses. Extensive cellulitis of the left face. Reactive submandibular and cervical chain lymph nodes. -Plan for facial incision and drainage, extraction of multiple teeth -Appreciate oromaxillary surgery input -Continue IV Unasyn -Blood cultures pending -Pain control Anxiety, Depression Continue Celexa Hypothyroidism Previously on Synthroid Recent TSH within normal limits Currently not on any medication Hyponatremia Hypomagnesemia Received IV fluids Replace electrolytes as needed Hypoglycemia Monitor BGs DVT Px: SCDs Code Status: FULL CODE Admission and Anticipated Discharge Date Admission Date: February 19, 2021 Subjective Patient is seen and examined at bedside States having left-sided facial pain, swelling Also reports difficulty chewing Plan for facial incision and drainage, extraction of multiple teeth today Denies chest pain, shortness of breath, dizziness, nausea, abdominal pain Offers no other complaints Review of Systems Review of Systems: All systems reviewed & are unremarkable except as noted in HPI & below Physical Exam Physical Exam: Physical Exam: Vitals signs as noted above General Appearance:Moderately built and nourished, no apparent distress Head: normocephalic, Atraumatic, + very poor dentition, Left facial swelling, minimal erythema Eyes: normal inspection, EOMI Neck: supple, Trachea midline Respiratory/Chest: Normal breath sounds, CTA Cardiovascular: S1, S2, No murmur Abdomen/GI:Soft, Non tender, Bowel sounds present Extremities/Musculoskeletal:normal inspection, no edema Neurologic/Psych:AAOX3, grossly no focal neurological deficits Skin: normal color, warm Results & Data Results & Data ([facility]) Vital Signs (Past 12 Hours) Vital Signs Temp Pulse Pulse Pulse Resp BP Pulse Ox 02/19/21 11:07 36.9 C 77 13 126/86 97 02/19/21 10:37 110 H 02/19/21 07:40 37.1 C 94 H 12 122/66 94 02/19/21 04:00 37.9 C H 91 H 20 108/71 96 Laboratory Results Short CBC 02/18/21 02/19/21 Range/Units 15:55 05:51 WBC 11.15 H 9.28 (4.8-10.8) K/uL Hgb 14.9 12.8 (12.0-16.0) g/dL Hct 42.2 36.9 L (37-47) % Plt Count 187 169 (130-400) K/uL BMP 02/18/21 02/19/21 15:55 05:51 Sodium 135 L 136 Potassium 3.8 3.8 Chloride 102 105 Carbon Dioxide 28 23 BUN 6 L 8 Creatinine 0.53 L 0.38 L Glucose 103 H 62 L Calcium 9.6 8.3 L Liver Function 02/18/21 Range/Units 15:55 Total Bilirubin 1.0 (0.2-1) mg/dl AST 20 (15-37) U/L ALT 28 (12-78) U/L Alkaline Phosphatase 81 (45-117) U/L Albumin 4.0 (3.4-5.0) gm/dl
[2021-02-19] MEDS ORDERED: ROCURONIUM BROMIDE 10 MG/ML 5 ML VIAL IV ONE (15:56)
[2021-02-19] MEDS ORDERED: DEXAMETHASONE SOD INJ 4 MG/ML VIAL ONE (15:56)
[2021-02-19] MEDS ORDERED: BUPIVACAINE/EPINEPHRINE 0.5% 1:200,000 1.8 ML CARP ONE (17:14)
[2021-02-19] MEDS ORDERED: LIDOCAINE 2%/EPINEPHRINE 1:100,000 1.8 ML CARTRIDGE ONE (17:15)
[2021-02-19] MEDS: fentaNYL citrate 100 MCG/2 ML VIAL IV PRN ×2 (17:32→17:37)
--- NOTE | 2021-02-19 17:41 | Operative Report ---
PG Post Operative Report Pre & Post Diagnosis Operation Date: 02/19/21 09:35 Pre-Op Diagnosis: LEFT FACIAL CELLULITIS infraorbital nasal/labial and left submandibular area Post-Op Diagnosis: LEFT FACIAL CELLULITIS (same) I identified the patient and participated in the time-out.: Yes Procedure Operation Date: 02/19/21 09:35 Actual Procedures p Facial Incision and Drainage of left infraorbital nasal/labial and left submandibular area, Extraction Multiple Teeth (Not Applicable) - Gagan Solorzano DMD Actual Procedures p Facial Incision and Drainage of left infraorbital nasal/labial and left submandibular area, Extraction Multiple Teeth all teeth and root fragments total of 27 ( teeth/roots from # 3-14 uppers--- 17-31 lowers) (Not Applicable) - Gagan Solorzano DMD Once cleared for surgery general anesthesia was achieved, the eyes were protected by the anesthesia dept criteria. A time out was take for patient ID, antibiotics, equipment and position verification once all agreed the procedure began. Local anesthesia using Marcaine with a vasoconstrictor ( 1.8 ml per site) given into right/left inferior alveolar nerve and infiltration of the maxilla. A throat pack was placed after the oral cavity was irrigated with saline. Once a surgical level of anesthesia was obtained and the local anesthesia was given time for the blocks the surgery was started. I turned my attention to the infection which was located in the floor of the mouth and submandibular left as well as the left infraorbital nasal/labial area. There was also a large swelling of the palate behind tooth # 11 Incision and Drainage Using a 15 blade an incision was made lateral to the alveolar ridge and medial to the duct of the submandibular gland. Once the incision was made a lot of pus extruded from the site. This drainage was cultured for anaerobic and aerobic bacteria. A curved hemostat was carefully placed into the infected space along the medial side of the lower jaw and into the submandibular space. Upper left : Now Using a 15 blade an incision was mucobuccal fold in the swollen vestibule of the upper left area Once the incision was made a lot of pus extruded from the site. This drainage was cultured for anaerobic and aerobic bacteria. A curved hemostat was carefully placed into the infected space along the lateral side of the nose and into the infraorbital space while palpating the infraorbital rim. Some further drainage was now allowed to escape. I palpated the left lateral nasal and submandibular area and no further drainage was expressed. These is a soft area of infection which is raising the palatal soft tissue behind # 11 which I will drain once the teeth are removed. The area was irrigated with at least 100 ml of NS solution. Annette teeth are in a very poor state--every tooth is fractures and decayed almost behind recognition. The decision was made to remove all the teeth and root fragments as part of the overall debridement to prevent reinfection. The extraction of the decayed and fractured is medically necessary to control the infection. The I&D w/o removing the cause (the teeth) is NOT the standard of care and the I&D with the dental extractions is medically necessary and justified. Lower teeth--#17-31 Total 15 teeth and root fragments The full thick Muco-periosteal flap was made on the facial aspect from # 17-32 area. This large flap was reflected to expose the the bone to allow extraction of the teeth. The dental forceps and rongeur was used to remove bone,root fragments, infected granulation tissue and the fractured/decayed teeth. Once removed the bone was adjusted the socket curetted, the mental nerve was intact, there was a large amount of granulation tissue on the apex and this was removed. A 2-0 chromic was used for closure after irrigation and control of bleeding Upper teeth --#3-14 Total 12 teeth and root fragments The full thick Muco-periosteal flap was made on the facial aspect from # 3-14 area. This large flap was reflected to expose the the bone to allow extraction of the teeth. The dental forceps and rongeur was used to remove bone,root fragments, infected granulation tissue and the fractured/decayed teeth. Upon reflecting the palatal flap a pocket of infection was encountered on the palatal side of # 11. This was drained and curetted. Once all the teeth were removed the bone was adjusted the socket curetted. A 2-0 chromic was used for closure after irrigation and control of bleeding. When the case was completed I inspected the sites to insure all bleeding was controlled. I removed the throat pack and suctioned the throat. An OG tube was placed Bilateral gauze pressure dressings were placed. All instrument and sponge count was correct. The patient was allowed to awake from the anesthesia. Once full awake the anesthesia tube was removed and the patient was taken to the recovery room with all vital sign stable. The patient tolerated the surgery very well. I will follow the patient in my office, Rx and instructions will be given upon discharge. Surgeon Gagan Solorzano, DMD Medic Technician none Estimated Blood Loss 10 Findings Consistent with Post-Op Diagnosis Specimens C&S pus Description of Procedure I&D, extraction of teeth I attest to the content of the Intraoperative Record and any orders documented therein. Any exceptions are noted below.
--- NOTE | 2021-02-19 18:42 | Anesthesiology Progress Note ---
Date of Service February 19, 2021 Anesthesia Post Procedure Vital Signs Vital Signs: Temp Pulse Pulse Pulse Resp BP BP 02/19/21 18:36 36.6 C 70 16 138/85 02/19/21 18:15 36.7 C 71 16 139/83 02/19/21 18:04 36.6 C 84 18 144/85 H 02/19/21 18:00 36.6 C 75 16 144/85 H 02/19/21 17:50 36.6 C 86 16 132/88 02/19/21 17:40 75 16 143/90 H 02/19/21 17:30 81 16 128/89 02/19/21 17:20 82 16 135/83 02/19/21 17:10 36.5 C 86 16 125/75 02/19/21 11:07 36.9 C 77 13 126/86 02/19/21 10:37 110 H 02/19/21 07:40 37.1 C 94 H 12 122/66 02/19/21 04:00 37.9 C H 91 H 20 108/71 02/19/21 00:34 90 02/18/21 22:51 36.7 C 96 H 18 114/66 02/18/21 20:05 36.8 C 95 H 98 H 18 136/91 02/18/21 19:30 95 H 19 02/18/21 19:20 94 H 17 02/18/21 19:10 105 H 19 02/18/21 19:00 91 H 13 02/18/21 18:50 97 H 20 Pulse Ox 02/19/21 18:36 96 02/19/21 18:15 96 02/19/21 18:04 96 02/19/21 18:00 95 02/19/21 17:50 99 02/19/21 17:40 99 02/19/21 17:30 100 02/19/21 17:20 100 02/19/21 17:10 100 02/19/21 11:07 97 02/19/21 10:37 02/19/21 07:40 94 02/19/21 04:00 96 02/19/21 00:34 02/18/21 22:51 99 02/18/21 20:05 99 02/18/21 19:30 02/18/21 19:20 02/18/21 19:10 02/18/21 19:00 02/18/21 18:50 Pain Intensity Face: Pain Intensity: 4 Transfer of Care Handoff Completed per policy Notes Mental Status: alert / awake / arousable and participated in evaluation Patient Amnestic to Procedure: Yes Nausea / Vomiting: adequately controlled Pain: adequately controlled Airway Patency, RR, SpO2: stable & adequate BP & HR: stable & adequate Hydration State: stable & adequate Anesthetic Complications: no major complications apparent and Pt Satisfied with anesthetic care
[2021-02-20] MEDS: D5W AND NSS 1,000 ML IV SCH (03:22)
[2021-02-20] MEDS: AMPICILLIN/SULBACTAM SOD 3,000 MG in 0.9 % SODIUM CHLORIDE 100 ML IV SCH ×3 (05:15→15:52)
[2021-02-20 06:27] LABS: Hematocrit (blood only) 34.6 % (37-47); Hemoglobin 12.2 g/dL (12.0-16.0); Mean Corpuscular Hemoglobin 30.1 pg (25-34); Mean Corpuscular Hgb Conc 35.3 g/dL (32-36); Mean Corpuscular Volume 85.4 fL (80-100); Mean Platelet Volume 10.9 fL (7.4-10.4); Platelet Count 183 K/uL (130-400); RDW Coefficient of Variation 12.5 % (11.5-14.5); RDW Standard Deviation 39.4 fL (36.4-46.3); Red Blood Count 4.05 M/uL (4.2-5.4); White Blood Count 7.43 K/uL (4.8-10.8)
[2021-02-20 06:58] LABS: BUN Creatinine Ratio 18.9 (10-20); Blood Urea Nitrogen 8 mg/dl (7-18); Calcium 8.1 mg/dl (8.5-10.1); Carbon Dioxide 27 mmol/L (21-32); Chloride 107 mmol/L (98-107); Creatinine Clr Calc Pharmacy 214.9 ml/min; Est GFR (African American) > 150.0; Est GFR (Non-African American) 140.8; Glucose 116 mg/dl (70-99); Magnesium 2.1 mg/dl (1.8-2.4); Potassium 4.2 mmol/L (3.5-5.1); Sodium 138 mmol/L (136-145)
[2021-02-20] MEDS: KETOROLAC TROMETHAMINE 15 MG/ML VIAL IV PRN ×2 (08:03→15:06)
[2021-02-20] MEDS: CITALOPRAM 20 MG TAB PO SCH (08:03)
--- NOTE | 2021-02-20 09:44 | Oral/Maxillofacial Progress Nt ---
Date of Service Doing well after the surgery minimal swelling, pain well controlled, no bleeding facial swelling responded well to I&D and surgery--soft swelling as expected I reviewed the post op instructions--diet, oral care and follow up in 2 weeks suggest oral antibiotics and pain Meds --I will order OK for discharge from oral surgery point of view today February 20, 2021 Assessment & Plan Admission and Anticipated Discharge Date Admission Date: February 19, 2021 Results & Data ([facility]) Vital Signs (Past 12 Hours) Vital Signs Temp Pulse Pulse Resp BP BP Pulse Ox 02/20/21 07:27 36.5 C 79 18 135/88 99 02/20/21 05:25 91 H 02/20/21 04:16 36.6 C 71 18 113/87 97 02/20/21 00:23 72 02/20/21 00:00 36.6 C 83 18 115/77 95 PG Care Time/CCT Total # of Minutes Spent Total Time Spent with Patient: Total time spent is greater than 50% in coordination of care (as documented) at patient's floor/unit and/or counseling patient: Coding Level of Care Code None
--- NOTE | 2021-02-20 14:16 | Hospitalist Progress Note ---
Date of Service February 20, 2021 Assessment & Plan (1) Cellulitis of face: Left Facial Cellulitis Multiple decayed/fractured teeth Periapical abscess/abscesses -Face CT: Extensive dental caries with associated periapical cysts. Moderate sized periapical cyst involves the left maxillary lateral incisor. There are two adjacent subcentimeter peripherally enhancing fluid collections as above suggestive of abscesses. Extensive cellulitis of the left face. Reactive submandibular and cervical chain lymph nodes. -S/P facial incision and drainage, extraction of multiple teeth POD # 1 -Appreciate oromaxillary surgery input -Continue IV Unasyn -Blood cultures: No growth to date -Wound culture pending -Pain control -Needs follow-up with Dr. Solorzano in 2 weeks upon discharge Anxiety, Depression Continue Celexa Hypothyroidism Previously on Synthroid Recent TSH within normal limits Currently not on any medication Hyponatremia Hypomagnesemia Received IV fluids Replace electrolytes as needed Hypoglycemia Monitor BGs DVT Px: SCDs Code Status: FULL CODE Admission and Anticipated Discharge Date Admission Date: February 19, 2021 Subjective Patient is seen and examined at bedside States having pain at surgical site, but controlled Tolerating full liquid diet No other complaints Denies chest pain, shortness of breath, dizziness, nausea, abdominal pain Review of Systems Review of Systems: All systems reviewed & are unremarkable except as noted in HPI & below Physical Exam Physical Exam: Physical Exam: Vitals signs as noted above General Appearance:Moderately built and nourished, no apparent distress Head: normocephalic, Atraumatic, Poor dentition, Left facial swelling, tender Eyes: normal inspection, EOMI Neck: supple, Trachea midline Respiratory/Chest: Normal breath sounds, CTA Cardiovascular: S1, S2, No murmur Abdomen/GI:Soft, Non tender, Bowel sounds present Extremities/Musculoskeletal:normal inspection, no edema Neurologic/Psych:AAOX3, grossly no focal neurological deficits Skin: normal color, warm Results & Data Results & Data ([facility]) Vital Signs (Past 12 Hours) Vital Signs Temp Pulse Pulse Pulse Resp BP BP 02/20/21 11:24 37 C 100 H 18 102/59 L 02/20/21 07:27 36.5 C 79 18 135/88 02/20/21 05:25 91 H 02/20/21 04:16 36.6 C 71 18 113/87 Pulse Ox 02/20/21 11:24 97 02/20/21 07:27 99 02/20/21 05:25 02/20/21 04:16 97 Laboratory Results Short CBC 02/20/21 Range/Units 05:54 WBC 7.43 (4.8-10.8) K/uL Hgb 12.2 (12.0-16.0) g/dL Hct 34.6 L (37-47) % Plt Count 183 (130-400) K/uL BMP 02/20/21 05:54 Sodium 138 Potassium 4.2 Chloride 107 Carbon Dioxide 27 BUN 8 Creatinine 0.40 L Glucose 116 H Calcium 8.1 L
--- NOTE | 2021-02-20 14:22 | Discharge Summary ---
Date of Service February 20, 2021 Admission HPI Per Admitting Provider This is a 31-year-old female with a notable past medical history of anxiety and hypothyroidism who presents today for evaluation of left dental pain and left- sided facial swelling. Patient notes that she has struggled with dentition problems her whole entire life. The last time she saw a dentist was over a year ago. She said over the last 2 days, her teeth on her left side have begun feeling more painful; this also included the roof of her mouth. She noted that last night, she began to notice some firmness and redness in the left side of her face, and upon waking this morning, it was much worse. She denies trouble breathing. She does say that is painful to swallow, however eating and drinking has not resulted in gagging or choking on food. She denies any recent fevers, chills, night sweats, loss of appetite, nausea, vomiting, diarrhea. In the ED, patient was found to be hemodynamically stable with a mild leukocytosis with left shift. There was no airway involvement. CT of the face demonstrated extensive cellulitis of the left face, dental caries, as well as periapical cysts and abscesses near the left maxillary incisor. OMFS was notified. Patient was started on Unasyn. Socially, patient reports living at home with her parents and 4 children. She reports that things have been quite rough for her lately and she has had difficulty taking care of herself. She is in the midst of a divorce. She does say that her mood has been quite down lately, although she denies SI or HI. She endorses using half a pack per day of cigarettes for approximately 8 years, denies alcohol use, denies recreational substance use. Admission Exam Per Admitting Provider Physical Exam Physical Exam: General: 31-year-old female who is alert, oriented, and appears in mild distress secondary to her facial swelling. She is nontoxic- appearing overall. HEENT: General visual inspection of the face does reveal extensive erythema and edema involving the left face; specifically, from the level of the eye to the bottom of the cheek. The left eyelids demonstrate a mild amount of edema. The left cheek does demonstrate induration that is mildly tender to palpation. Oral exam does reveal poor dentition; there are no obvious or focal areas of edema or mass. Gentle palpation of the left inner cheek reveals firmness. The soft and hard palate are nontender to palpation. Examination of the posterior oropharynx reveals a midline uvula and moderately sized tonsils that do not appear inflamed. The airways patent. There is no pharyngeal erythema. The eyes are's white, anicteric and without injection. PERRL. Extraocular movements display full range of motion bilaterally. There is anterior cervical lymphadenopathy on the left. Cardiac: Normal rate and regular rhythm; S1 and S2 present with no murmurs, rubs, or gallops. Pulmonary: Good respiratory effort with symmetric expansion of the chest. No use of accessory muscles. Lungs were clear to auscultation bilaterally with no crackles or wheezes. Abdominal: Normoactive bowel sounds. Abdomen was soft, nondistended, and non- tender to palpation. No hepatomegaly or splenomegaly. Extremities: Upper and lower extremities are warm and well perfused. Radial and dorsalis pedis pulses were 2+ b/l. Capillary refill assessed in UE was < 3 sec. Principal Diagnosis Left Facial Cellulitis Multiple decayed/fractured teeth Periapical abscess/abscesses Discharge Data Allergies Allergy/AdvReac Type Severity Reaction Status Date / Time No Known Allergies Allergy Unverified 02/18/21 18:30 Consultations 02/18/21 18:19 ED Decision to Admit Stat 02/18/21 20:09 Consult Oromaxillofacial Surgery Routine Procedures Performed Operation Date: 02/19/21 09:35 Actual Procedures p Facial Incision and Drainage, Extraction Multiple Teeth(Not Applicable) - Gagan Solorzano, SONAL -Face CT: Extensive dental caries with associated periapical cysts. Moderate sized periapical cyst involves the left maxillary lateral incisor. There are two adjacent subcentimeter peripherally enhancing fluid collections as above suggestive of abscesses. Extensive cellulitis of the left face. Reactive submandibular and cervical chain lymph nodes. Ordered Studies 02/18/21 15:45 CT facial bones w con Stat Hospital Course (1) Cellulitis of face: Left Facial Cellulitis Multiple decayed/fractured teeth Periapical abscess/abscesses -Face CT: Extensive dental caries with associated periapical cysts. Moderate sized periapical cyst involves the left maxillary lateral incisor. There are two adjacent subcentimeter peripherally enhancing fluid collections as above suggestive of abscesses. Extensive cellulitis of the left face. Reactive submandibular and cervical chain lymph nodes. -S/P facial incision and drainage, extraction of multiple teeth POD # 1 -Appreciate oromaxillary surgery input -Continue IV Unasyn -Blood cultures: No growth to date -Wound culture pending -Pain control -Needs follow-up with Dr. Solorzano in 2 weeks upon discharge Anxiety, Depression Continue Celexa Hypothyroidism Previously on Synthroid Recent TSH within normal limits Currently not on any medication Hyponatremia Hypomagnesemia Received IV fluids Replace electrolytes as needed Hypoglycemia Monitor BGs DVT Px: SCDs Code Status: FULL CODE Total Time Total Time Spent Total Time Spent (In Minutes): 42 minutes Total Time Includes: Examination of the Patient, Discharge Planning, Medication Reconciliation, Communication With Other Providers and Other Discharge Plan Discharge Items Patient Disposition: Home - Self-Care Reason For Visit: LEFT FACIAL CELLULITIS Discharge Diagnosis: Left Facial Cellulitis Multiple decayed/fractured teeth Periapical abscess/abscesses Condition on Discharge: Good Activity: Resume your previous activity Lifting: Gradually increase as tolerated Bathing: No limitations Exercise/Sports: Gradually increase as tolerated Driving/Machine Use: Resume 1 day after discharge Weightbearing: Full weightbearing Non-emergency contact: Primary Care Provider and Surgeon Call non-emergency contact if: your temperature is above 101.5, your wound has increased redness, your wound has increased drainage and your wound pain has increased Follow-up/Referrals: Gagan Solorzano, SONAL [Physician] - PCP,NO [Primary Care Provider] - Diet: Clear liquid Addtl Attending Provider Instructions: Follow-up with your primary care physician in 1 week Follow-up with your surgeon Dr. Solorzano in 2 weeks Complete antibiotic course as prescribed. Your cultures are pending at the time of discharge. Follow-up with your physician for results. Seek immediate medical attention if your symptoms reoccur or worsen ADDITIONAL ACTIVITY RECOMMENDATIONS: * Starting tonight rinse with the Peridex as directed then 2 x a day * it is very important to keep well hydrated, this prevents fever and possible dry socket pain SPECIAL CARE INSTRUCTIONS: *It is not uncommon that between day 2-4 that your swelling will be at its worst this is very normal, do not be alarmed. * Keep ice on the side of your face for the next 24 to 36 hours. This will help keep the swelling down. * After 36 hours, apply heat (hot water bottle or heating pad) for the next two days, as often as possible. * Tomorrow start rinsing your mouth with 1/2 teaspoon salt in 8 ounces warm water. This rinse should be used every 4-6 hours. * You may experience slight nausea. To prevent this, never take your medication on an empty stomach. If nauseated, take small sips of sandoval bushra until you feel better; then you may start on applesauce and toast. * Some swelling is common. It should gradually decrease within 4-5 days. * A certain amount of bleeding is to be expected. It is often possible to control mild oozing by placing folded gauze over the area and biting down for 30 minutes. If you are unable to control excessive bleeding, call Dr Solorzano at [phone] * You may experience some discomfort for a few days. If pain or swelling increases, Call Dr Solorzano * Return to the office for a follow up check up if one was given to you. POST OP MARCH 12 AT 10 AM [facility] * If you do not have a follow up appointment please call the office at [phone] and set one up for 10-15 days after your surgery Pending Studies at Discharge: Yes Studies:: results of C&S Stand-Alone Forms: [facility] [email or web address], Opioid Pain Management, Smoking Cessation Medications and DC Order Prescriptions: Continued amoxicillin-pot clavulanate 875-125 mg tablet 1 tab PO Q12H Qty: 20 RF: 0 hydrocodone-acetaminophen 5-325 mg tablet 1 tab PO Q4H PRN (Reason: pain) Qty: 20 RF: 0 chlorhexidine gluconate [Peridex] 0.12 % mouthwash 15 ml mucous membrane BID Qty: 473 RF: 0 ondansetron HCl 8 mg tablet 8 mg PO Q8H PRN (Reason: nausea and vomiting) Qty: 10 RF: 0 citalopram [Celexa] 10 mg Tablet 10 mg PO DAILY RF: 0 Discharge Orders: Discharge Order (Routine); Ordered 02/20/21 Ordered By: Gagan Solorzano Admission Data Admit Date/Time: 02/19/21 12:48 Attending Provider: Kendall Obrien Admit Provider: Kendall Obrien Primary Care Provider: PCP,NO Other Providers: Alondra Herring ; Gagan Solorzano Other Interventions: Discharge Summary Assessment (RN) Last Done: 02/20/21 14:18
[2021-02-20] MEDS ORDERED: COUGH DROP (SUGAR FREE) LOZ 24 LOZ/1 BOX BUCCAL ONE (15:25)
[2021-02-20] MEDS ORDERED: SODIUM CHLORIDE 0.65% NA SOLN 45 ML (OCEAN) ONE (15:25)
== END 2021-02-20 17:53 | disposition home or self-care (01) | DRG 158 ==
LOC: ED 15:22 → 2N 15:22